=== PATIENT | female | born 1970 | race Caucasian/White ===

== ENCOUNTER 2024-04-07 10:58 | Inpatient (IN) | payer OTHER, MEDICAID, SELFPAY ==
[2024-04-07] VITALS (25 sets, daily range): BP systolic 134–199; BP diastolic 58–94; PULSE 87–116; RESP 16–27; TEMP 36.1–38.5; O2SAT 95–100; BMI 31.1
--- NOTE | 2024-04-07 | ECHO_ITS ---
Patient Info Name: Larissa Duckworth Age: 53 years : 1970 Gender: Female Ht: 64 in Wt: 178 lbs BSA: 1.94 m2 HR: 107 bpm BP: 173 / 71 mmHg Heart Rhythm: Sinus Rhythm Technical Quality: Good Exam Date: 04/07/2024 4:00 PM Exam Location: Echo Lab Patient Status: Inpatient Admit Date: 04/07/2024 Staff Ordering Physician: Linda Schultz APRN Tea Leaf Reader: Tessa Gil RDCS Attending Provider: Angelo Moreno MD Referring Physician: Antoine JONES; Exam Type: CA echo doppler color flow Study Info Indications - elevated troponin R06.02 - Shortness of breath Complete two-dimensional, color flow and Doppler transthoracic echocardiogram is performed. Summary 1. Complete two-dimensional, color flow and Doppler transthoracic echocardiogram is performed. 2. Unremarkable 2D/Doppler echocardiogram. Left Ventricle Left ventricular chamber dimension is normal. Left ventricular systolic function is normal, estimated at 60-65%. The left ventricular diastolic function is normal. Right Ventricle Right ventricular chamber dimension is normal. Left Atria Left atrial chamber dimension is normal. Right Atria Right atrial chamber dimension is normal. Aortic Valve The aortic valve is normal. Pulmonic Valve The pulmonic valve is normal. Mitral Valve The mitral valve has normal leaflets. Tricuspid Valve The tricuspid valve leaflets are normal. Pericardium/Pleural The pericardium appears normal. Aorta The aortic root size at the sinus of Valsalva is normal. Left Ventricular Outflow Tract Name Value Normal LVOT 2D LVOT Diameter 2.0 cm LVOT Doppler LVOT Peak Gradient 7 mmHg LVOT Mean Gradient 3 mmHg LVOT VTI 18 cm LVOT VTI/AV VTI Ratio 0.7 LVOT Stroke Volume 60 ml LVOT CO 5.8 l/min LVOT CI 3.0 l/min/m2 Pulmonic Valve Name Value Normal RVOT Doppler RVOT Peak Gradient 5 mmHg PV Doppler PV Peak Gradient 7 mmHg Mitral Valve Name Value Normal MV Doppler MV Decel [place] 458 cm/s2 MV PHT 44 ms MV Area (PHT) 5.0 cm2 4.0-5.0 MV Diastolic Function MV E Peak Velocity 69 cm/s MV A Peak Velocity 82 cm/s MV E/A 0.9 MV Decel Time 152 ms MV Annular TDI MV E/e' (Septal) 14.1 <=8.0 MV E/e' (Lateral) 15.8 <=8.0 MV E/e' (Average) 15.0 Aorta Name Value Normal Ascending Aorta Ao Root Diameter (MM) 2.8 cm Ao Root Diam Index (MM) 1.4 cm/m2 Aortic Valve Name Value Normal AV Doppler AV Peak Velocity 187 cm/s AV Peak Gradient 14 mmHg AV Mean Gradient 7 mmHg AV VTI 24 cm AV Area (Cont Eq VTI) 2.4 cm2 >=3.0 AV Area (Cont Eq Jude) 2.2 cm2 AV Regurgitation 2D LVOT Area 3.3 cm2 Ventricles Name Value Normal LV Dimensions 2D/MM IVS Diastolic Thickness (2D) 1.0 cm 0.6-1.0 LVID Diastole (2D) 5.6 cm 3.8-5.2 LVIW Diastolic Thickness (2D) 1.0 cm 0.6-0.9 LVID Systole (2D) 3.9 cm 2.2-3.5 LVOT Diameter 2.0 cm LV Mass (2D Cubed) 225.93 g 67.00-162.00 LV Mass Index (2D Cubed) 117 g/m2 43-95 Relative Wall Thickness (2D) 0.36 LV Fractional Shortening/Ejection Fraction 2D/MM LV Fractional Shortening (2D) 30 % 27-45 LV EF (2D Teicholz) 57 % 54-74 LV Diastolic Volume (4C MOD) 115 ml LV EF (4C MOD) 59 % LV Diastolic Volume (2C MOD) 122 ml LV EF (2C MOD) 59 % LV Diastolic Volume (BP MOD) 118 ml 46-106 LV Diastolic Volume Index (BP MOD) 61 ml/m2 29-61 LV Systolic Volume (BP MOD) 49 ml 14-42 LV Systolic Volume Index (BP MOD) 25 ml/m2 8-24 LV EF (BP MOD) 59 % 54-74 LV Diastolic Length (4C) 8.7 cm LV Systolic Length (4C) 7.5 cm LV Stroke Volume (4C MOD) 68 ml Atria Name Value Normal LA Dimensions LA Dimension (MM) 4.7 cm 2.7-3.8 LA Volume (4C A-L) 84 ml LA Volume (BP A-L) 89 ml RA Dimensions RA Area (4C) 15.9 cm2 <=18.0 Report Signatures
--- NOTE | ~2024-04-07 | CT_ITS ---
EXAMINATION: CT diagnostic chest wo con DATE: 04/08/2024 13:54 INDICATION: Shortness of breath TECHNIQUE: Computed tomography (CT) of the chest was performed without intravenous contrast. Automate d exposure control and iterative reconstruction technique were employed. Exam dose: 198.70 mGy-cm to deon exam DLP. COMPARISON: 04/08/2024 portable AP chest FINDINGS: There is bilateral minimal posterior basilar lower lobe and lingular basilar discoid atelec tasis and/or scarring. There is mild patchy right lower lobe infrahilar infiltrate. The lungs otherwise appear clear of infi ltrate or consolidation. There are shotty nonenlarged mediastinal lymph nodes. No thoracic aortic aneurysm. Normal heart size. Trace pericardial fluid. No hilar or mediastinal mass lesion or lymphadenopathy is detected. No pleural effusion. Normal morphology of the adrenal glands. Status post cholecystectomy. No suspicious osteolytic or osteoblastic lesions. IMPRESSION: Mild patchy right lower lobe infrahilar infiltrate Mild discoid atelectasis and/or scarring at the lung bases Trace pericardial fluid Status post cholecystectomy Reviewed, dictated and finalized at [facility]. Reviewed, dictated and finalized at location A.
--- NOTE | ~2024-04-07 | XR_ITS ---
EXAMINATION: XR chest 1V portable DATE: 04/07/2024 12:24 INDICATION: Shortness of breath TECHNIQUE: frontal view of the chest was obtained. COMPARISON: None FINDINGS: Several leads project over the chest. Mild retrocardiac airspace opacity left lower lung zone. No pul monary edema, pleural effusion or pneumothorax. The cardiomediastinal silhouette is normal. IMPRESSION: 1. Mild opacities projecting over the left lower lung zone which could represent atelectasis or pneum onia. Reviewed, dictated and finalized at location [facility]. IMPRESSION: 1. Mild opacities projecting over the left lower lung zone which could represen t atelectasis or pneumonia.
--- NOTE | ~2024-04-07 | XR_ITS ---
EXAMINATION: XR chest 1V portable DATE: 04/08/2024 09:47 INDICATION: Shortness of breath. TECHNIQUE: A single frontal view of the chest was obtained. COMPARISON: Chest single view 04/07/2024 FINDINGS: There is no pneumonia, pleural effusion, or pneumothorax. The heart size is normal. IMPRESSION: 1. No acute cardiopulmonary disease. Reviewed, dictated and finalized at location [facility].
--- NOTE | 2024-04-07 11:36 | ECG_ITS ---
Test Date: 2024-04-07 11:56:31 Measurements Intervals [place] Rate: 87 P: 42 NV: 174 QRS: 26 QRSD: 93 T: 91 QT: 367 QTc: 442 Interpretive Statements SINUS RHYTHM POSSIBLE LEFT ATRIAL ENLARGEMENT CANNOT R/O SEPTAL INFARCT, AGE INDETERMINATE BORDERLINE ST-T WAVE ABNORMALITY- HIGH LATERAL LEADS BASELINE ARTIFACT- I, II, III, AVR, AVL, AVF, V1-V6 BORDERLINE ECG No previous ECG available for comparison Electronically Signed On 04-07-2024 18:40:49 CDT by Ranjit Rivera D.O.
[2024-04-07 11:46] LABS: Basophils Absolute Auto 0.1 K/mm3 (0.0-0.1); Basophils Percent Auto 0.4 % (0.2-1.2); Eosinophils Absolute Auto 0.1 K/mm3 (0-0.3); Hematocrit 37.2 % (37.0-47.0); Hemoglobin 11.6 g/dL (12.0-15.0); Immature Granulocyte Absolute 0.04 K/mm3 (0.00-0.031); Immature Granulocyte Percent A 0.3 % (0-0.5); Lymphocytes Absolute Auto 0.74 K/mm3 (0.9-3.2); Lymphocytes Percent Auto 6.3 % (18.3-44.2); Mean Corpuscular HGB Conc 31.2 g/dl (32-36); Mean Corpuscular Hemoglobin 29.6 pg (26-34); Mean Corpuscular Volume 94.9 fl (80-100); Mean Platelet Volume 10.4 fl (7.4-10.4); Monocytes Absolute Auto 0.5 K/mm3 (0.1-0.6); Monocytes Percent Auto 4.3 % (2.6-8.5); Neutrophils Absolute Auto 10.3 K/mm3 (1.3-6.7); Neutrophils Percent Auto 87.7 % (45.5-73.1); Platelet Count Result 191 k/mm3 (150-375); Red Blood Count 3.92 M/mm3 (4.2-5.4); Red Cell Distribution Width 13.8 % (11.5-14.5); White Blood Count 11.8 K/mm3 (4.5-10.0)
[2024-04-07 11:57] LABS: Alanine Aminotransferase 128 U/L (6-35); Alkaline Phosphatase 138 U/L (38-126); Anion Gap 10 mmol/L (4-12); Aspartate Amino Transferase 70 U/L (14-36); Bilirubin,Total 0.7 mg/dL (0.2-1.3); Blood Urea Nitrogen 37 mg/dL (7-17); Calcium 9.2 mg/dL (8.4-10.2); Carbon Dioxide 19 mmol/L (22-30); Chloride 111 mmol/L (98-107); Estimated CRCL calculation 38 ml/min; Estimated Glomerular Filt Rate 34; Glucose 141 mg/dL (65-110); Potassium 4.6 mmol/L (3.4-5.0); Sodium 140 mmol/L (137-145)
[2024-04-07] MEDS: ALBUTEROL SULFATE NEB 2.5 MG/3 ML INH 10 MG INHALATION (12:02)
[2024-04-07] MEDS: IPRATROPIUM BR 0.02% INH SOLN 0.5 MG/2.5 ML VIAL 1 MG INHALATION (12:02)
[2024-04-07 13:21] LABS: NT Pro B Type Natriuretic Pept 10400 pg/mL (19.9-100)
[2024-04-07 13:24] LABS: Troponin I 0.056 ng/mL (0.000-0.034)
--- NOTE | 2024-04-07 13:30 | ED_ITS ---
HPI - SOB/Dyspnea General Chief Complaint: Shortness of Breath/Dyspnea Stated Complaint: SOB Time Seen by Provider: 04/07/24 11:17 History of Present Illness HPI Narrative: This is a 53-year-old female with a past medical history significant for congestive heart failure and hypertension. She is currently on-call directed medical therapy according to her home medications. She presents today in respiratory distress. She states that the shortness of breath started last night associated with the chest tightness sensation and a cough. She is having cold symptoms since and was recently diagnosed with bronchitis less than 1 month ago. She was treated with Z-Andre and steroids which did not fully resolve her symptoms. She states she was diagnosed with CHF in the remote past but had a lapse of her medications for several months prior to being restarted on last month after her insurance was restarted. She has been taking her medications without any changes or dose adjustments, no missed medications according to herself. She states she had a fever yesterday of 101.3. Endorses a productive cough of clear phlegm. Pain presents in severe respiratory distress, 2 word dyspnea, diaphoretic, hypertensive, tachycardic. She was made a medical resuscitation and immediately placed on BiPAP with respiratory therapy assist. [place]. Related Data Allergies Allergy/AdvReac Type Severity Reaction Status Date / Time aspirin Allergy Hives Verified 04/07/24 11:19 Review of Systems Review of Systems: As reviewed above in HPI Exam Narrative: GENERAL: Respiratory distress, diaphoretic, tachypneic, shallow respirations, tripod positioning HEAD: Normocephalic, atraumatic, diaphoresis on the forehead EYES: [PERRLA and EOMI.] ENT: Nares clear, no rhinorrhea or epistaxis. Mucous membranes moist. NECK: Supple. CHEST: Severely diminished air entry bilaterally, no appreciable wheezing, some crackles in the bases, accessory muscles of respiration used HEART: [Regular rate and rhythm]. No murmur heard. [Normal peripheral pulses.] ABDOMEN: [Soft, nondistended], [nontender], [No rigidity or guarding] EXTREMITIES: Normal range of motion. 1+ edema SKIN: Diaphoretic NEURO: [No focal deficits]. Alert and oriented [x3.] Course Vital Signs Vital signs: Vital Signs Temperature 36.1 C L 04/07/24 11:20 Pulse Rate 93 04/07/24 11:20 Respiratory Rate 20 04/07/24 11:20 Blood Pressure 199/94 H 04/07/24 11:20 Pulse Oximetry 97 04/07/24 11:20 Oxygen Delivery Nasal Cannula 04/07/24 11:20 Oxygen Flow Rate 2 04/07/24 11:20 Temperature 36.1 C L 04/07/24 11:20 Pulse Rate 107 H 04/07/24 13:30 Respiratory Rate 24 H 04/07/24 13:30 Blood Pressure 173/71 H 04/07/24 13:30 Pulse Oximetry 100 04/07/24 13:30 Oxygen Delivery BiPAP 04/07/24 12:04 Oxygen Flow Rate 2 04/07/24 11:20 MDM - SOB/Dyspnea MDM Narrative Medical decision making narrative: 53-year-old female with history of congestive heart failure on current goal- directed medical therapy presenting as a medical resuscitation secondary to respiratory distress. Patient is having 2 or dyspnea, diaphoretic, severely hy pertensive and tachycardic. Differential diagnosis at this time includes decompensated heart failure, ACS, pneumonia, reactive airway process such as a COPD or asthma although she is a nonsmoker does not have any history of this. Less likely pathology does include PE although she has low Wells criteria for this. Respiratory therapy was called to bedside to place patient on BiPAP with continuous nebulized treatments with albuterol Atrovent through in line nebulization. A bedside ultrasound was conducted by myself which revealed a significantly reduced ejection fraction of approximately 20-30% with no pericardial effusions or hypokinesis of any particular region of the chambers. B-lines were appreciated bilaterally but lung sliding was also seen without any evidence of pneumothorax. Patient had significant symptomatic improvement with the BiPAP and was tolerating this well. She was given 40 mg of IV Lasix for concerns of decompensated heart failure based on her ultrasound findings. Blood pressure and vital signs significantly improved. Repeat evaluation showed blood pressure of 173/71, heart rate 104, 100% on BiPAP. No emergent need for cardioactive medications to lower blood pressure further at this time given her significant improvement in respiratory distress. She is able to converse through the BiPAP easily, no longer feeling dyspneic, no longer diaphoretic, resting comfortably on the BiPAP. Workup revealed a slight leukocytosis of 11.8, anemia of 11.6 with unknown chronicity. Chemistry panel showed an elevated BUN and creatinine which could be intravascular volume depletion or component of CKD versus DAVEY. Glucose 141 and stable. Electrolytes largely within normal limits. ALT AST and alk-phos slightly elevated which could raise suspicion for potential congestive hepatopathy in the background of her CHF history but likely secondary not acutely concerning. Troponin mildly elevated 0.056, BNP significantly elevated at 10,400 thousand four hundred. EKG was nonischemic, repeat EKG and troponins will be trended. Chest x-ray shows airspace opacities in the left lower zone which could be atelectasis versus pneumonia. Given her history of fever and recent bronchitis we favor pneumonia in this scenario and treated her with IV antibiotics including Rocephin and doxycycline. Patient at this time requires admission to the hospital to the intermediate care unit given her initial respiratory distress now significantly improved on BiPAP therapy. Patient will be maintained on BiPAP and later will attempt to be transitioned to nasal cannula as tolerated. Discussions had with the hospitalist team regarding admission. Patient was agreeable to the plan of care at this time. Medical Records Attestation: I reviewed the patient's medical records. Lab Data Attestation: I reviewed the patient's lab results. 04/07/24 11:40 04/07/24 11:40 Labs: Lab Results 04/07/24 04/07/24 Range/Units 11:39 11:40 WBC 11.8 H (4.5-10.0) K/mm3 RBC 3.92 L (4.2-5.4) M/mm3 Hgb 11.6 L (12.0-15.0) g/dL Hct 37.2 (37.0-47.0) % MCV 94.9 (80-100) fl MCH 29.6 (26-34) pg MCHC 31.2 L (32-36) g/dl RDW 13.8 (11.5-14.5) % Plt Count 191 (150-375) k/mm3 MPV 10.4 (7.4-10.4) fl Immature Gran % (Auto) 0.3 (0-0.5) % Neut % (Auto) 87.7 H (45.5-73.1) % Lymph % (Auto) 6.3 L (18.3-44.2) % [place] % (Auto) 4.3 (2.6-8.5) % Eos % (Auto) 1.0 (0-4.4) % Baso % (Auto) 0.4 (0.2-1.2) % Lymph # (Auto) 0.74 L (0.9-3.2) K/mm3 [place] # (Auto) 0.5 (0.1-0.6) K/mm3 Eos # (Auto) 0.1 (0-0.3) K/mm3 Baso # (Auto) 0.1 (0.0-0.1) K/mm3 Abs Immat Gran (auto) 0.04 H (0.00-0.031) K/mm3 Absolute Neuts (auto) 10.3 H (1.3-6.7) K/mm3 Absolute Nucleated RBC 0.000 (0.0-0.012) K/mm3 Nucleated RBC % 0.0 (0.0-0.2) % Sodium 140 (137-145) mmol/L Potassium 4.6 (3.4-5.0) mmol/L Chloride 111 H (98-107) mmol/L Carbon Dioxide 19 L (22-30) mmol/L Anion Gap 10 (4-12) mmol/L BUN 37 H (7-17) mg/dL Creatinine 1.60 H (0.7-1.0) mg/dL Estim Creat Clear Calc 38 ml/min Estimated GFR 34 L (59 - ) Glucose 141 H (65-110) mg/dL Calcium 9.2 (8.4-10.2) mg/dL Total Bilirubin 0.7 (0.2-1.3) mg/dL AST 70 H (14-36) U/L ALT 128 H (6-35) U/L Alkaline Phosphatase 138 H (38-126) U/L Troponin I 0.056 H* (0.000-0.034) ng/mL NT-Pro-B Natriuret Pep 16912 H (19.9-100) pg/mL Total Protein 7.0 (6.3-8.2) g/dL Albumin 4.0 (3.5-5.1) g/dL Imaging Data Attestation: I personally reviewed and interpreted this imaging study as follows: Radiologist's impression: Impressions Chest X-Ray 04/07/24 12:24 IMPRESSION: 1. Mild opacities projecting over the left lower lung zone which could represent atelectasis or pneumonia. Critical Care Time Critical Care Time Critical Care Time: Yes Total Critical Care Time: 60 Discharge Plan Discharge Clinical Impression: Acute hypoxic respiratory failure, Community acquired pneumonia, Acute dec ompensated heart failure Patient Disposition: Still a Patient Condition: Guarded Prognosis Follow-up/Referrals: Patric Kinsey MD [Primary Care Provider] - Time of Disposition: 14:30
--- NOTE | 2024-04-07 13:35 | PC.NURSE ---
Spoke with EDP regarding blood cultures. Per EDP no blood cultures needed at this time.
[2024-04-07] MEDS: FUROSEMIDE INJ 40 MG/4 ML VIAL IV PUSH (13:40)
--- NOTE | 2024-04-07 14:35 | PM.IMHP ---
H&P: HPI History of Present Illness Date/Time: 04/07/24 14:35 Chief Complaint: Shortness of Breath Narrative: 53 y/o F presents here with shortness of breath with PMH of CHF, CKD stage 4, DM, and HTN. The patient presents here from home for further evaluation of shortness of breath. Patient reports that she initially started having symptoms on (04/06) which consisted of productive cough yielding clear sputum, fever with max T of 101.3? at home, shortness of breath, rhinorrhea, chills and body aches. Patient reports recent history of bronchitis, approximately 1 month ago, which was treated with azithromycin course and steroids. She reports that she completed both courses without full resolution of her symptoms - lingering fatigue. Patient also has history of congestive heart failure, has previously been on Lasix once daily (unknown mg) but has been off of these meds after an admission to a hospital in [place] in May/Apr (moved here in the last 6 months) due to the diuretic causing kidney problems . Patient also off her home medications for 2 months due to lack of insurance, reinstated 1 month ago and was able to contact her providers in [place] for a one month refill. Patient has made an appt with a local PCP (Addison DENNISON) but appt is not until Apr 18. Per ED provider, the patient arrived in severe respiratory distress. Patient unable to speak in full sentences due to shortness of breath, diaphoretic, hypertensive (199/94), and tachycardic (87-116). Patient initially arrived on 2 L nasal cannula, no baseline O2 requirement at home. Later in the ED course the patient was started on BiPAP due to the severity of her respiratory distress. Patient overall improved post BiPAP per ED provider assessment. Patient also reporting increased bilateral lower extremity edema over the last 2-5 days without tenderness or erthema. 5.9 in jul Initial VS at presentation: 97? F, HR 93, RR 20, 1-1 rhythm flu, wound a nodes 97% on 2L NC. ED workup showed: WBC 11.8, hemoglobin 11.6, creatinine 1.6 and GFR 34, AST 70, ALT 128, BNP 61623, and initial troponin 0.056. CXR showed mild opacities projecting over the left lower lung zone which could represent atelectasis versus pneumonia. Review of Systems Review of Systems: All systems reviewed & are unremarkable except as noted in HPI and below [facility] Past Medical History Medical History (Updated 04/07/24 @ 17:38 by Linda Schultz APRN) CHF (congestive heart failure) CKD (chronic kidney disease), stage IV Diabetes HTN (hypertension) Family History Family History (Updated 04/07/24 @ 15:46 by Melisa Boston RN) Father Leukemia Hypertension Chronic lymphocytic leukemia Mother Hypertension Diabetes mellitus Sibling Hypertension Grandparent Breast cancer Social History Social History Smoking status: Former smoker Tobacco type: cigarettes Additional smoking assessment comments: quit 2021, smoked 1 pack per week x 5 years Alcohol intake: never Substance use: current Substance use type: marijuana Other substance usage details: gummies Do You Feel Safe in your Home?: Yes Lack of Transportation: No Lack of Food: Never True Current Housing: I Have Housing Concerned About Future Housing: No Difficulty Paying Gas/Electric Bills: No Difficulty Paying for Meds: No Currently Unemployed: No Education: Associate Degree Difficulty w/ Childcare or Family Care: No Spiritual care concerns: No Meds Home Medications and Allergies Home Medications Medication Instructions Recorded Confirmed Type albuterol sulfate 90 mcg/actuation 90 inh inhalation Q4-6H PRN 04/07/24 04/07/24 History aerosol inhaler Shortness Of Breath Or Wheezing atorvastatin 40 mg tablet 40 mg PO DAILY 04/07/24 04/07/24 History clonidine HCl 0.1 mg tablet 0.3 mg PO HS 04/07/24 04/07/24 History empagliflozin 25 mg tablet 25 mg PO DAILY 04/07/24 04/07/24 History (Jardiance) gabapentin 100 mg capsule 100 mg PO HS 04/07/24 04/07/24 History insulin degludec 100 unit/mL (3 18 unit subcut DAILY 04/07/24 04/07/24 History mL) subcutaneous pen (Tresiba FlexTouch U-100 insulin) lisinopril 20 mg tablet 20 mg PO DAILY 04/07/24 04/07/24 History metoprolol succinate 100 mg 100 mg PO DAILY 04/07/24 04/07/24 History tablet,extended release 24 hr Allergies Allergy/AdvReac Type Severity Reaction Status Date / Time aspirin Allergy Hives Verified 04/07/24 11:19 Vital Signs Vital Signs - 24 hr 04/07/24 11:20 04/07/24 11:30 04/07/24 12:04 Temperature 97.0 F L Pulse Rate 93 98 92 Respiratory Rate 20 24 H 24 H Blood Pressure 199/94 H 167/90 H Pulse Oximetry 97 98 Oxygen Delivery Nasal Cannula Oxygen Flow Rate 2 04/07/24 12:04 04/07/24 12:31 04/07/24 12:46 Temperature Pulse Rate 87 110 H 116 H Respiratory Rate 26 H 27 H 22 H Blood Pressure 181/94 H 176/94 H Pulse Oximetry 100 100 100 Oxygen Delivery BiPAP Oxygen Flow Rate 04/07/24 13:16 04/07/24 13:30 Temperature Pulse Rate 105 H 107 H Respiratory Rate 24 H 24 H Blood Pressure 175/65 H 173/71 H Pulse Oximetry 100 100 Oxygen Delivery Oxygen Flow Rate Exam Const: General: comfortable and no acute distress Other: , female, nontoxic appearance HENMT: Face/Nose/Sinus: Normal nares present Mouth: Yes moist mucous membranes Other: NC in place Eyes: General: appearance normal, both eyes and all related structures Sclera: sclerae normal Pupils: Equal, round and reactive pupils present EOM: EOMs intact bilaterally Resp: Effort & Inspection: normal respiratory effort Auscultation: clear to auscultation bilaterally Other: No wheezing or crackles on exam. Cardio: Rate: regular rate Rhythm: regular rhythm Other: S1-S2 present without murmur, rub, ectopy GI: Other: Abdomen soft, nondistended, nontender Skin: General skin exam: normal color and no rashes or lesions noted Wounds: no wounds Neuro: General: gait normal Speech: normal speech Motor exam (neuro): 5/5 motor strength present throughout Sensory Exam: normal sensation Other: A&O x4 Extrem: Other: Trace nonpitting edema to bilateral ankles, symmetric Psych: Mental Status: mental status grossly normal Affect: normal affect Other: Good insight and judgment, very pleasant H&P: Results Labs Labs: Short CBC 04/07/24 Range/Units 11:40 WBC 11.8 H (4.5-10.0) K/mm3 Hgb 11.6 L (12.0-15.0) g/dL Hct 37.2 (37.0-47.0) % Plt Count 191 (150-375) k/mm3 BMP 04/07/24 11:40 Sodium 140 Potassium 4.6 Chloride 111 H Carbon Dioxide 19 L BUN 37 H Creatinine 1.60 H Glucose 141 H Calcium 9.2 Cardiac Enzymes 04/07/24 Range/Units 11:39 Troponin I 0.056 H* (0.000-0.034) ng/mL Liver Function 04/07/24 Range/Units 11:40 Total Bilirubin 0.7 (0.2-1.3) mg/dL AST 70 H (14-36) U/L ALT 128 H (6-35) U/L Alkaline Phosphatase 138 H (38-126) U/L Albumin 4.0 (3.5-5.1) g/dL Assessment and Plan Assessment and plan (1) Sepsis: Qualifiers: Sepsis type: sepsis due to unspecified organism Sepsis acute organ dysfunction status: with acute organ dysfunction Severe sepsis acute organ dysfunction type: acute respiratory failure Acute respiratory failure type: with hypoxia Severe sepsis shock status: without septic shock Qualified Code(s): A41.9 - Sepsis, unspecified organism; R65.20 - Severe sepsis without septic shock; J96.01 - Acute respiratory failure with hypoxia Code(s): A41.9 - Sepsis, unspecified organism Status: Acute Assessment and Plan: - meets SIRS criteria: HR, RR. +hypoxia - lactic acid: 4.9 - lactic elevated, procalcitonin added - given concern for CHF exacerbation, will start with 500 mL bolus and 100 mL/hour x1 L. Monitor response. - suspected source: Pneumonia - started on ceftriaxone IVPB and doxycycline p.o. - blood cultures drawn on 04/07 - UA added - CXR showing possible left lower lobe pneumonia (2) Acute hypoxic respiratory failure: Code(s): J96.01 - Acute respiratory failure with hypoxia Status: Acute Assessment and Plan: - CXR: Mild opacities projecting over the left lower lung zone which could represent atelectasis or pneumonia. - initially requiring BiPAP, now weaned to 2L NC. Continue to wean as tolerated and maintain sat >92%. - suspect pneumonia with possible CHF component (3) Community acquired pneumonia: Qualifiers: Laterality: left Lung location: lower lobe of lung Qualified Code(s): J18.9 - Pneumonia, unspecified organism Code(s): J18.9 - Pneumonia, unspecified organism Status: Suspected Assessment and Plan: - CXR concerning for left lower lobe pneumonia - risk factors and complicating factors: Possible CHF exacerbation - started on CAP tx: Ceftriaxone IVPB and and doxycycline p.o. - Viral PCR pending - sputum culture - currently requiring supplemental O2, wean as tolerated and maintain sat greater than 92% (4) Acute decompensated heart failure: Code(s): I50.9 - Heart failure, unspecified Status: Suspected Assessment and Plan: - BNP 15908 - no echo on file, ordered - currently off diuretics, will start Lasix 40 IVP daily - daily weights - monitor I&Os - trend renal function (5) CKD (chronic kidney disease), stage IV: Code(s): N18.4 - Chronic kidney disease, stage 4 (severe) Status: Chronic Assessment and Plan: - creatinine 1.6 and GFR 34 - unknown baseline - hx of CKD stage 4 - trend renal function - trend electrolytes, correct as needed (6) Diabetes: Qualifiers: Diabetes mellitus type: type 2 Diabetes mellitus terminal superintendent insulin use: without terminal superintendent use Diabetes mellitus complication status: with kidney complications Diabetes mellitus complication detail: with chronic kidney disease Chronic kidney disease stage: stage 4 (severe) Qualified Code(s): E11.22 - Type 2 diabetes mellitus with diabetic chronic kidney disease; N18.4 - Chronic kidney disease, stage 4 (severe) Code(s): E11.9 - Type 2 diabetes mellitus without complications Status: Chronic Assessment and Plan: - hypoglycemia protocol - POC blood glucose ACHS - home medication: Continue Jardiance - correct regimen ordered - high dose TIDWM, based off BMI - A1C ordered (7) HTN (hypertension): Qualifiers: Hypertension type: primary hypertension Qualified Code(s): I10 - Essential (primary) hypertension Code(s): I10 - Essential (primary) hypertension Status: Chronic Assessment and Plan: - chronic, currently 158/64. Arrived hypertensive at 199/94. - continue home medications: clonidine 0.3 HS, lisinopril 20 daily, metoprolol XL 100 daily - monitor Plan Patient requesting refill of her medications at discharge, does not have appointment to establish with a PCP here until April 18. Patient also requesting referral to Nephrology and Cardiology to establish care here as well, previously saw these specialists in [place]. Diet: Diabetic GI Prophylaxis: Not currently indicated DVT Prophylaxis: SCDs Lines: Peripheral Code Status: Full code Quality VTE Prophylaxis VTE prophylaxis: mechanical ordered Hospitalist MIPS Advance Care Plan I have confirmed that the patient's Advanced Care Plan is present, code status is documented, or surrogate decision maker is listed in patient medical record.: Yes Medication Reconciliation I have utilized all available resources to obtain, update and review the patients current medications (includes all prescriptions, OTC, herbals, cannabis, and nutritional supplements).: Yes
[2024-04-07] MEDS: DOXYCYCLINE 100 MG/NS 100 ML 100 MG/100 ML BAG IVPB (15:10)
[2024-04-07 15:25] LABS: Influenza A QL RT-PCR Negative (Negative); Influenza B QL RT-PCR Negative (Negative); RSV RNA, RT-PCR Negative (Negative); SARS-CoV-2 RNA PCR Negative (Negative)
--- NOTE | 2024-04-07 15:51 | ADMGEN ---
Addendum entered by Melisa Boston RN 04/07/24 19:11: Pt arrived to the floor at 1535. Report received from PASTORA Diaz @ [id number] Original Note: This patient, Larissa Duckworth, was admitted to IMU Room 212-01. Patient/family oriented to hospital policies and general routines including ID bracelet, bed and alarms, visiting hours, pain management, procedures, bathroom and other care routines, personal items, smoking policy, room service/diet, and visiting hours. Information on how to activate the Rapid Response Team has been discussed. Patient/Family are encouraged to report perceived risks to care and to ask questions if they do not understand what they are told or what they should do.
[2024-04-07 17:03] LABS: Lactic Acid Reflex 4.9 mmol/L (0.7-2.0)
[2024-04-07 17:16] LABS: Troponin I 0.079 ng/mL (0.000-0.034)
[2024-04-07 17:52] LABS: Glucose Point of Care 249 mg/dl (65-105)
[2024-04-07] MEDS: SODIUM CHLORIDE 0.9% IV 500 ML 999 ML IV CONT (17:56)
[2024-04-07] MEDS: INSULIN ASPART (*BKC) 100 UNITS/ML SUB-Q (17:56)
[2024-04-07] MEDS: LACTATED RINGERS 1,000 ML 100 ML IV CONT (17:56)
[2024-04-07 18:57] LABS: Procalcitonin 0.2 ng/mL
[2024-04-07 19:40] LABS: Reflex Lactic Acid Yes or No Add Lactic
[2024-04-07 19:45] LABS: Add Urine Microscopic? NO; Appearance Urine Clear (Clear); Bilirubin Urine Negative (Negative); Blood Urine Negative (Negative); Color Urine Yellow (Yellow); Glucose Urine UA 2+ mg/dL (Negative); Ketones Urine Negative (Negative); Leukocyte Esterase Ur Negative LEU/UL (Negative); Nitrate Urine Negative (Negative); Protein Urine Negative (Negative); Urobilinogen Urine 0.2 mg/dL (<2.0)
[2024-04-07] MEDS: cloNIDine HCL 0.1 MG TABLET 0.3 MG PO (20:25)
[2024-04-07] MEDS: DOXYCYCLINE HYCLATE 100 MG TABLET PO (20:26)
[2024-04-07] MEDS: GABAPENTIN 100 MG CAPSULE PO (20:26)
[2024-04-07] MEDS: ACETAMINOPHEN 325 MG TABLET 650 MG PO (20:26)
[2024-04-07 20:32] LABS: Glucose Point of Care 149 mg/dl (65-105)
[2024-04-07] MEDS: IPRATROPIUM 0.5 MG/ALBUTEROL SULFATE 2.5 MG AMPUL.NEB 3 ML INHALATION (20:41)
[2024-04-07 21:13] LABS: Lactic Acid 2.8 mmol/L (0.7-2.0)
[2024-04-08] VITALS (22 sets, daily range): BP systolic 103–155; BP diastolic 61–78; PULSE 78–98; RESP 20–25; TEMP 36.8–37.1; O2SAT 90–100
[2024-04-08] MEDS: ALBUTEROL SULFATE (*SP) AEROSOL 1 PUFF INHALATION (04:08)
[2024-04-08 04:31] LABS: Basophils Absolute Auto 0.1 K/mm3 (0.0-0.1); Basophils Percent Auto 0.5 % (0.2-1.2); Eosinophils Absolute Auto 0.1 K/mm3 (0-0.3); Eosinophils Percent Auto 0.5 % (0-4.4); Hematocrit 37.1 % (37.0-47.0); Hemoglobin 11.6 g/dL (12.0-15.0); Immature Granulocyte Absolute 0.04 K/mm3 (0.00-0.031); Immature Granulocyte Percent A 0.4 % (0-0.5); Lymphocytes Absolute Auto 1.09 K/mm3 (0.9-3.2); Mean Corpuscular HGB Conc 31.3 g/dl (32-36); Mean Corpuscular Hemoglobin 29.5 pg (26-34); Mean Corpuscular Volume 94.4 fl (80-100); Mean Platelet Volume 10.3 fl (7.4-10.4); Monocytes Absolute Auto 0.6 K/mm3 (0.1-0.6); Monocytes Percent Auto 5.6 % (2.6-8.5); Platelet Count Result 202 k/mm3 (150-375); Red Blood Count 3.93 M/mm3 (4.2-5.4); Red Cell Distribution Width 14.4 % (11.5-14.5); White Blood Count 10.9 K/mm3 (4.5-10.0)
[2024-04-08 04:39] LABS: Hemoglobin A1C 8.3 % (<5.7)
[2024-04-08 04:56] LABS: Alanine Aminotransferase 95 U/L (6-35); Alkaline Phosphatase 119 U/L (38-126); Anion Gap 12 mmol/L (4-12); Aspartate Amino Transferase 36 U/L (14-36); Bilirubin,Total 0.8 mg/dL (0.2-1.3); Blood Urea Nitrogen 33 mg/dL (7-17); Calcium 9.3 mg/dL (8.4-10.2); Carbon Dioxide 21 mmol/L (22-30); Chloride 103 mmol/L (98-107); Estimated CRCL calculation 36 ml/min; Estimated Glomerular Filt Rate 32; Glucose 234 mg/dL (65-110); Sodium 136 mmol/L (137-145)
[2024-04-08 07:24] LABS: Glucose Point of Care 219 mg/dl (65-105)
[2024-04-08] MEDS: IPRATROPIUM 0.5 MG/ALBUTEROL SULFATE 2.5 MG AMPUL.NEB 3 ML INHALATION ×3 (07:47→19:51)
[2024-04-08 09:15] LABS: Lactic Acid Reflex 0.8 mmol/L (0.7-2.0)
[2024-04-08 09:41] LABS: Alveolar/Arterial O2 Gradient 98.2 mmHg; Base Excess ABG -4.2 mEq/l (+/-2.0); Fractional Inspired Oxygen 28 %; HCO3 ABG 19.6 mEq/l (22.0-26.0); Oxygen Content ABG 15.1 %vol (16.0-22.0); Oxyhemoglobin 91.7 % THb (90.0-100.0); PCO2 ABG 31.6 mmHg (35.0-45.0); PO2 ABG 64.2 mmHg (80.0-100.0); PO2 FiO2 Ratio Arterial Blood 2.29 %; Total Hemoglobin 11.7 g/dL (12.0-18.0)
[2024-04-08 09:42] LABS: Device NASAL CANNULA; Modified Allen's Test Pass; Site Drawn LEFT RADIAL
[2024-04-08] MEDS: lisinopriL 20 MG TABLET PO (09:42)
[2024-04-08] MEDS: ATORVASTATIN 40 MG TABLET PO (09:42)
[2024-04-08] MEDS: METOPROLOL SUCCINATE EXT REL 100 MG TABCR PO (09:43)
[2024-04-08] MEDS: DOXYCYCLINE HYCLATE 100 MG TABLET PO ×2 (09:44→21:47)
[2024-04-08] MEDS: EMPAGLIFLOZIN 25 MG TABLET PO (09:45)
[2024-04-08] MEDS: FUROSEMIDE INJ 40 MG/4 ML VIAL IV PUSH (09:51)
[2024-04-08 10:14] LABS: Glucose Point of Care 192 mg/dl (65-105)
[2024-04-08] MEDS: INSULIN GLARGINE (*BKC) 100 UNITS/ML 18 UNITS SUB-Q (10:14)
[2024-04-08] MEDS: guaiFENesin 600 MG/DEXTROMETHORPHAN 30 MG SR TAB 12 HR 1 TAB PO ×2 (10:21→20:31)
[2024-04-08 11:58] LABS: Glucose Point of Care 192 mg/dl (65-105)
--- NOTE | 2024-04-08 13:07 | P.PNIM_ITS ---
Progress Note: A&P Assessment and Plan (1) Sepsis: Qualifiers: Sepsis type: sepsis due to unspecified organism Sepsis acute organ dysfunction status: with acute organ dysfunction Severe sepsis acute organ dysfunction type: acute respiratory failure Acute respiratory failure type: with hypoxia Severe sepsis shock status: without septic shock Qualified Code(s): A41.9 - Sepsis, unspecified organism; R65.20 - Severe sepsis without septic shock; J96.01 - Acute respiratory failure with hypoxia Code(s): A41.9 - Sepsis, unspecified organism Status: Acute Assessment and Plan: - meets SIRS criteria: HR, RR. +hypoxia - lactic acidosis resolved, 0.8 today - lactic elevated, procalcitonin added gentle IVF and monitor - started on ceftriaxone IVPB and doxycycline p.o. monitor cultures CXR this mornign showed negative Pneumonia, Ct chest ordered CXR on admission showed left lower lung zone opacities F/u Ct chest (2) Acute hypoxic respiratory failure: Code(s): J96.01 - Acute respiratory failure with hypoxia Status: Acute Assessment and Plan: - CXR: Mild opacities projecting over the left lower lung zone which could represent atelectasis or pneumonia. - initially requiring BiPAP, now weaned to 2L NC. Continue to wean as tolerated and maintain sat >92%. - titrate oxygen and follow up CT chest (3) Community acquired pneumonia: Qualifiers: Laterality: left Lung location: lower lobe of lung Qualified Code(s): J18.9 - Pneumonia, unspecified organism Code(s): J18.9 - Pneumonia, unspecified organism Status: Suspected Assessment and Plan: continue above care (4) Acute decompensated heart failure: Code(s): I50.9 - Heart failure, unspecified Status: Suspected Assessment and Plan: await CT chest and titrate diuresis with clinical course (5) CKD (chronic kidney disease), stage IV: Code(s): N18.4 - Chronic kidney disease, stage 4 (severe) Status: Chronic Assessment and Plan: - creatinine 1.6 and GFR 34 - unknown baseline - hx of CKD stage 4 - trend renal function - trend electrolytes, correct as needed (6) Diabetes: Qualifiers: Diabetes mellitus type: type 2 Diabetes mellitus long term care pharmacist insulin use: without senior care use Diabetes mellitus complication status: with kidney complications Diabetes mellitus complication detail: with chronic kidney disease Chronic kidney disease stage: stage 4 (severe) Qualified Code(s): E11.22 - Type 2 diabetes mellitus with diabetic chronic kidney disease; N18.4 - Chronic kidney disease, stage 4 (severe) Code(s): E11.9 - Type 2 diabetes mellitus without complications Status: Chronic Assessment and Plan: - hypoglycemia protocol - POC blood glucose ACHS - home medication: Continue Jardiance - correct regimen ordered - high dose TIDWM, based off BMI - A1C ordered (7) HTN (hypertension): Qualifiers: Hypertension type: primary hypertension Qualified Code(s): I10 - Essential (primary) hypertension Code(s): I10 - Essential (primary) hypertension Status: Chronic Assessment and Plan: - chronic, currently 158/64. Arrived hypertensive at 199/94. - continue home medications: clonidine 0.3 HS, lisinopril 20 daily, metoprolol XL 100 daily - monitor Plan Diet: Diabetic DVT Prophylaxis: on sq Lovenox Lines: Peripheral Code Status: Full code Subjective Date/time seen: 04/08/24 13:07 Interval history: Comfortable at bedside, still on BiPAP at the time of this encounter Review of Systems Review of Systems: All systems reviewed & are unremarkable except as noted in HPI and below Exam Narrative: General: alert and comfortable, on BIPAP Eyes: EOMI, PERRLA ENNT External ears normal, Neck is supple, no masses, Respiratory systems: Clear to auscultation Cardiovascular S1, S2, normal rhythm, no murmur, rub, or gallop; no thrill or palpable murmurs on palpation. Gastrointestinal: soft, non-tender, and non-distended abdomen with no masses; BS present Skin: no rash, lesions, ulcerations, subcutaneous nodules or induration Musculoskeletal: no abnormality and no tenderness, normal ROM Neurologic: Alert and oriented x3, non focal Mental Status Exam: normal affect Objective Data Vital Signs Vital Signs: Vital Signs - 24 hr 04/07/24 13:16 04/07/24 13:30 04/07/24 15:43 Temperature Pulse Rate 105 H 107 H Respiratory Rate 24 H 24 H Blood Pressure 175/65 H 173/71 H Pulse Oximetry 100 100 96 Oxygen Delivery Nasal Cannula Oxygen Flow Rate 2 Fraction of Inspired Oxygen 04/07/24 15:43 04/07/24 13:46 04/07/24 14:00 Temperature 99.3 F Pulse Rate 103 H 105 H 101 H Respiratory Rate 20 24 H 21 H Blood Pressure 158/64 H 169/70 H 155/68 H Pulse Oximetry 97 100 100 Oxygen Delivery Oxygen Flow Rate Fraction of Inspired Oxygen 04/07/24 14:16 04/07/24 14:52 04/07/24 15:00 Temperature Pulse Rate 103 H 99 97 Respiratory Rate 22 H 19 24 H Blood Pressure 159/74 H 162/59 H 160/79 H Pulse Oximetry 100 100 100 Oxygen Delivery Oxygen Flow Rate Fraction of Inspired Oxygen 04/07/24 15:15 04/07/24 15:35 04/07/24 16:00 Temperature Pulse Rate 96 101 H Respiratory Rate 24 H Blood Pressure 161/69 H Pulse Oximetry 100 95 Oxygen Delivery Nasal Cannula Oxygen Flow Rate 2 Fraction of Inspired Oxygen 04/07/24 20:00 04/07/24 20:26 04/07/24 20:45 Temperature 101.3 F H 101.3 F H Pulse Rate 103 H 108 H Respiratory Rate 16 24 H Blood Pressure 159/73 H Pulse Oximetry 97 100 Oxygen Delivery BiPAP Oxygen Flow Rate Fraction of Inspired Oxygen 04/07/24 20:47 04/07/24 21:26 04/07/24 20:00 Temperature 97.4 F L Pulse Rate 108 H 102 H Respiratory Rate 24 H Blood Pressure Pulse Oximetry 100 Oxygen Delivery BiPAP Oxygen Flow Rate Fraction of Inspired Oxygen 04/07/24 22:00 04/07/24 20:00 04/07/24 23:57 Temperature 98.3 F Pulse Rate 94 89 Respiratory Rate 26 H Blood Pressure 134/58 L Pulse Oximetry 97 100 Oxygen Delivery Nasal Cannula Oxygen Flow Rate 2 Fraction of Inspired Oxygen 04/08/24 00:00 04/08/24 00:00 04/08/24 00:40 Temperature Pulse Rate 85 83 Respiratory Rate 25 H Blood Pressure Pulse Oximetry 100 96 Oxygen Delivery BiPAP BiPAP Oxygen Flow Rate Fraction of Inspired Oxygen 30 04/08/24 02:00 04/08/24 04:00 04/08/24 04:08 Temperature 98.8 F Pulse Rate 80 80 Respiratory Rate 23 H Blood Pressure 122/62 Pulse Oximetry 99 95 Oxygen Delivery Nasal Cannula Oxygen Flow Rate 2 Fraction of Inspired Oxygen 28 04/08/24 04:08 04/08/24 04:00 04/08/24 04:00 Temperature Pulse Rate 96 88 Respiratory Rate 23 H Blood Pressure Pulse Oximetry 93 Oxygen Delivery BiPAP Oxygen Flow Rate Fraction of Inspired Oxygen 30 04/08/24 06:00 04/08/24 07:48 04/08/24 07:50 Temperature Pulse Rate 90 87 87 Respiratory Rate 21 H 23 H Blood Pressure Pulse Oximetry 98 Oxygen Delivery BiPAP Oxygen Flow Rate Fraction of Inspired Oxygen 04/08/24 08:00 04/08/24 08:00 04/08/24 12:00 Temperature 98.3 F 98.3 F Pulse Rate 98 88 85 Respiratory Rate 20 20 20 Blood Pressure 155/69 H 144/72 H Pulse Oximetry 97 95 Oxygen Delivery Oxygen Flow Rate Fraction of Inspired Oxygen 04/08/24 08:00 04/08/24 12:00 Temperature Pulse Rate Respiratory Rate Blood Pressure Pulse Oximetry 98 97 Oxygen Delivery BiPAP Nasal Cannula Oxygen Flow Rate 2 Fraction of Inspired Oxygen 30 Intake/Output Intake/Output: Intake & Output 04/05/24 04/06/24 04/07/24 04/08/24 23:59 23:59 23:59 23:59 Intake Total 1430 400 Output Total 700 Balance 1430 -300 Meds/Results Medications: Active Medications Generic Name Dose Route Start Last Admin Trade Name Freq PRN Reason Stop Dose Admin Acetaminophen 650 mg 04/07/24 15:09 04/07/24 20:26 Acetaminophen 325 Mg Tablet PO 650 mg Q4H PRN Administration Mild Pain (1-3) or Fever Albuterol 1 puff 04/07/24 17:34 04/08/24 04:08 Albuterol Sulfate (*Sp) Aerosol 1 Puff INHALATION 1 puff Q4-6H PRN Administration Shortness Of Breath Or Wheezin Albuterol/Ipratropium 3 ml 04/08/24 04:05 04/08/24 07:47 Ipratropium 0.5 Mg/Albuterol Sulfate 2.5 Mg Ampul.Neb 3 Ml INHALATION 3 ml Q6HRT PAIGE Administration Atorvastatin Calcium 40 mg 04/08/24 09:00 04/08/24 09:42 Atorvastatin 40 Mg Tablet PO 40 mg DAILY PAIGE Administration Clonidine HCl 0.3 mg 04/07/24 21:00 04/07/24 20:25 Clonidine Hcl 0.1 Mg Tablet PO 0.3 mg HS PAIGE Administration Dextrose 12.5 gm 04/07/24 17:36 Dextrose 50% 25 Gm/50 Ml Syringe IV PUSH PRN PRN Hypoglycemia Protocol Doxycycline Hyclate 100 mg 04/07/24 22:00 04/08/24 09:44 Doxycycline Hyclate 100 Mg Tablet PO 100 mg Q12H PAIGE Administration Empagliflozin 25 mg 04/08/24 09:00 04/08/24 09:45 Empagliflozin 25 Mg Tablet PO 25 mg DAILY PAIGE Administration Furosemide 40 mg 04/08/24 09:00 04/08/24 09:51 Furosemide Inj 40 Mg/4 Ml Vial IV PUSH 40 mg DAILY PAIGE Administration Gabapentin 100 mg 04/07/24 21:00 04/07/24 20:26 Gabapentin 100 Mg Capsule PO 100 mg HS PAIGE Administration Glucagon 1 mg 04/07/24 17:36 Glucagon For Inj 1 Mg Vial IM PRN PRN Hypoglycemia Protocol Glucose 15 gm 04/07/24 17:36 Glucose Oral Gel 15 Gm Of Glucse In 37.5 Gm Tube PO PRN PRN Hypoglycemia Protocol Guaifenesin/Dextromethorphan 1 tab 04/08/24 10:10 04/08/24 10:21 Guaifenesin 600 Mg/Dextromethorphan 30 Mg Sr Tab 12 Hr PO 1 tab Q12HR PAIGE Administration Ceftriaxone Sodium 1 gm in 50 mls @ 100 mls/hr 04/08/24 14:00 Rocephin 1 Gm/Ns 50 Ml IVPB Q24H PAIGE Dextrose 1,000 mls @ 100 mls/hr 04/07/24 17:36 Dextrose 5% 1,000 Ml IVPB PRN PRN Hypoglycemia Protocol Insulin Aspart 4 - 8 units 04/07/24 17:54 04/08/24 11:30 Insulin Aspart (*Bkc) 100 Units/Ml SUB-Q Not Given TIDWM APIGE Protocol Insulin Glargine 18 units 04/08/24 09:00 04/08/24 10:14 Insulin Glargine (*Bkc) 100 Units/Ml SUB-Q 18 units DAILY PAIGE Administration Lisinopril 20 mg 04/08/24 09:00 04/08/24 09:42 Lisinopril 20 Mg Tablet PO 20 mg DAILY PAIGE Administration Metoprolol Succinate 100 mg 04/08/24 09:00 04/08/24 09:43 Metoprolol Succinate Ext Rel 100 Mg Tabcr PO 100 mg DAILY PAIGE Administration Perflutren Lipid Microsphere 0 ml 04/07/24 15:06 Perflutren Lipid Microspheres 1.5 Ml Vial Diluted To 10 Ml Total Volume IV PUSH 04/10/24 15:06 ONCE PRN adequate visualization Protocol Radiology Results: ITS Impressions Chest X-Ray 04/08/24 09:48 IMPRESSION: 1. No acute cardiopulmonary disease. Labs Labs: Laboratory Results - last 24 hr 04/07/24 04/07/24 04/07/24 11:39 14:37 14:43 WBC RBC Hgb Hct MCV MCH MCHC RDW Plt Count MPV Immature Gran % (Auto) Neut % (Auto) Lymph % (Auto) [place] % (Auto) Eos % (Auto) Baso % (Auto) Lymph # (Auto) [place] # (Auto) Eos # (Auto) Baso # (Auto) Abs Immat Gran (auto) Absolute Neuts (auto) Absolute Nucleated RBC Nucleated RBC % Puncture Site ABG pH ABG pCO2 ABG pO2 ABG PO2/FiO2 Ratio ABG HCO3 ABG O2 Saturation ABG O2 Content ABG Base Excess A-a Gradient Oxyhemoglobin Total Hemoglobin O2 Delivery Device O2 Liters/Min FiO2 Sodium Potassium Chloride Carbon Dioxide Anion Gap BUN Creatinine Estim Creat Clear Calc Estimated GFR Glucose POC Capillary Glucose Hemoglobin A1c Lactic Acid Calcium Total Bilirubin AST ALT Alkaline Phosphatase Troponin I 0.056 H* 0.070 H* D NT-Pro-B Natriuret Pep 09788 H Total Protein Albumin Procalcitonin Urine Color Urine Appearance Urine pH Ur Specific [place] Urine Protein Urine Glucose (UA) Urine Ketones Ur Blood (Man) Urine Nitrate Urine Bilirubin Urine Urobilinogen Leukocyte Esterase Rfl Influenza A (RT-PCR) Negative Influenza B (RT-PCR) Negative RSV (RT-PCR) Negative SARS-CoV-2 RNA (RT-PCR) Negative 04/07/24 04/07/24 04/07/24 16:30 16:34 17:48 WBC RBC Hgb Hct MCV MCH MCHC RDW Plt Count MPV Immature Gran % (Auto) Neut % (Auto) Lymph % (Auto) [place] % (Auto) Eos % (Auto) Baso % (Auto) Lymph # (Auto) [place] # (Auto) Eos # (Auto) Baso # (Auto) Abs Immat Gran (auto) Absolute Neuts (auto) Absolute Nucleated RBC Nucleated RBC % Puncture Site ABG pH ABG pCO2 ABG pO2 ABG PO2/FiO2 Ratio ABG HCO3 ABG O2 Saturation ABG O2 Content ABG Base Excess A-a Gradient Oxyhemoglobin Total Hemoglobin O2 Delivery Device O2 Liters/Min FiO2 Sodium Potassium Chloride Carbon Dioxide Anion Gap BUN Creatinine Estim Creat Clear Calc Estimated GFR Glucose POC Capillary Glucose 249 H Hemoglobin A1c Lactic Acid 4.9 H* Calcium Total Bilirubin AST ALT Alkaline Phosphatase Troponin I 0.079 H* NT-Pro-B Natriuret Pep Total Protein Albumin Procalcitonin 0.2 Urine Color Urine Appearance Urine pH Ur Specific [place] Urine Protein Urine Glucose (UA) Urine Ketones Ur Blood (Man) Urine Nitrate Urine Bilirubin Urine Urobilinogen Leukocyte Esterase Rfl Influenza A (RT-PCR) Influenza B (RT-PCR) RSV (RT-PCR) SARS-CoV-2 RNA (RT-PCR) 04/07/24 04/07/24 04/07/24 19:15 20:27 20:46 WBC RBC Hgb Hct MCV MCH MCHC RDW Plt Count MPV Immature Gran % (Auto) Neut % (Auto) Lymph % (Auto) [place] % (Auto) Eos % (Auto) Baso % (Auto) Lymph # (Auto) [place] # (Auto) Eos # (Auto) Baso # (Auto) Abs Immat Gran (auto) Absolute Neuts (auto) Absolute Nucleated RBC Nucleated RBC % Puncture Site ABG pH ABG pCO2 ABG pO2 ABG PO2/FiO2 Ratio ABG HCO3 ABG O2 Saturation ABG O2 Content ABG Base Excess A-a Gradient Oxyhemoglobin Total Hemoglobin O2 Delivery Device O2 Liters/Min FiO2 Sodium Potassium Chloride Carbon Dioxide Anion Gap BUN Creatinine Estim Creat Clear Calc Estimated GFR Glucose POC Capillary Glucose 149 H Hemoglobin A1c Lactic Acid 2.8 H Calcium Total Bilirubin AST ALT Alkaline Phosphatase Troponin I NT-Pro-B Natriuret Pep Total Protein Albumin Procalcitonin Urine Color Yellow Urine Appearance Clear Urine pH 5.0 Ur Specific [place] 1.010 Urine Protein Negative Urine Glucose (UA) 2+ H Urine Ketones Negative Ur Blood (Man) Negative Urine Nitrate Negative Urine Bilirubin Negative Urine Urobilinogen 0.2 Leukocyte Esterase Rfl Negative Influenza A (RT-PCR) Influenza B (RT-PCR) RSV (RT-PCR) SARS-CoV-2 RNA (RT-PCR) 04/08/24 04/08/24 04/08/24 04:16 07:22 08:45 WBC 10.9 H RBC 3.93 L Hgb 11.6 L Hct 37.1 MCV 94.4 MCH 29.5 MCHC 31.3 L RDW 14.4 Plt Count 202 MPV 10.3 Immature Gran % (Auto) 0.4 Neut % (Auto) 83.0 H Lymph % (Auto) 10.0 L [place] % (Auto) 5.6 Eos % (Auto) 0.5 Baso % (Auto) 0.5 Lymph # (Auto) 1.09 [place] # (Auto) 0.6 Eos # (Auto) 0.1 Baso # (Auto) 0.1 Abs Immat Gran (auto) 0.04 H Absolute Neuts (auto) 9.0 H Absolute Nucleated RBC 0.000 Nucleated RBC % 0.0 Puncture Site ABG pH ABG pCO2 ABG pO2 ABG PO2/FiO2 Ratio ABG HCO3 ABG O2 Saturation ABG O2 Content ABG Base Excess A-a Gradient Oxyhemoglobin Total Hemoglobin O2 Delivery Device O2 Liters/Min FiO2 Sodium 136 L Potassium 4.0 Chloride 103 Carbon Dioxide 21 L Anion Gap 12 BUN 33 H Creatinine 1.70 H Estim Creat Clear Calc 36 Estimated GFR 32 L Glucose 234 H POC Capillary Glucose 219 H Hemoglobin A1c 8.3 H Lactic Acid 0.8 Calcium 9.3 Total Bilirubin 0.8 AST 36 ALT 95 H Alkaline Phosphatase 119 Troponin I NT-Pro-B Natriuret Pep Total Protein 7.0 Albumin 4.0 Procalcitonin Urine Color Urine Appearance Urine pH Ur Specific [place] Urine Protein Urine Glucose (UA) Urine Ketones Ur Blood (Man) Urine Nitrate Urine Bilirubin Urine Urobilinogen Leukocyte Esterase Rfl Influenza A (RT-PCR) Influenza B (RT-PCR) RSV (RT-PCR) SARS-CoV-2 RNA (RT-PCR) 04/08/24 04/08/24 04/08/24 09:31 10:07 11:23 WBC RBC Hgb Hct MCV MCH MCHC RDW Plt Count MPV Immature Gran % (Auto) Neut % (Auto) Lymph % (Auto) [place] % (Auto) Eos % (Auto) Baso % (Auto) Lymph # (Auto) [place] # (Auto) Eos # (Auto) Baso # (Auto) Abs Immat Gran (auto) Absolute Neuts (auto) Absolute Nucleated RBC Nucleated RBC % Puncture Site Left radial ABG pH 7.410 ABG pCO2 31.6 L ABG pO2 64.2 L ABG PO2/FiO2 Ratio 2.29 ABG HCO3 19.6 L ABG O2 Saturation 93.0 L ABG O2 Content 15.1 L ABG Base Excess -4.2 A-a Gradient 98.2 Oxyhemoglobin 91.7 Total Hemoglobin 11.7 L O2 Delivery Device Nasal cannula O2 Liters/Min 2.0 FiO2 28 Sodium Potassium Chloride Carbon Dioxide Anion Gap BUN Creatinine Estim Creat Clear Calc Estimated GFR Glucose POC Capillary Glucose 192 H 192 H Hemoglobin A1c Lactic Acid Calcium Total Bilirubin AST ALT Alkaline Phosphatase Troponin I NT-Pro-B Natriuret Pep Total Protein Albumin Procalcitonin Urine Color Urine Appearance Urine pH Ur Specific [place] Urine Protein Urine Glucose (UA) Urine Ketones Ur Blood (Man) Urine Nitrate Urine Bilirubin Urine Urobilinogen Leukocyte Esterase Rfl Influenza A (RT-PCR) Influenza B (RT-PCR) RSV (RT-PCR) SARS-CoV-2 RNA (RT-PCR) Quality VTE Prophylaxis VTE prophylaxis: mechanical ordered
[2024-04-08 16:31] LABS: Glucose Point of Care 169 mg/dl (65-105)
[2024-04-08] MEDS: cloNIDine HCL 0.1 MG TABLET 0.3 MG PO (20:30)
[2024-04-08] MEDS: GABAPENTIN 100 MG CAPSULE PO (20:31)
[2024-04-08 20:38] LABS: Glucose Point of Care 167 mg/dl (65-105)
[2024-04-09] VITALS (29 sets, daily range): BP systolic 113–160; BP diastolic 51–95; PULSE 75–100; RESP 17–23; TEMP 36.5–36.7; O2SAT 86–99
[2024-04-09] MEDS: IPRATROPIUM 0.5 MG/ALBUTEROL SULFATE 2.5 MG AMPUL.NEB 3 ML INHALATION ×4 (02:16→20:09)
[2024-04-09 02:52] LABS: Basophils Absolute Auto 0.1 K/mm3 (0.0-0.1); Basophils Percent Auto 0.7 % (0.2-1.2); Eosinophils Absolute Auto 0.2 K/mm3 (0-0.3); Hematocrit 40.1 % (37.0-47.0); Hemoglobin 12.4 g/dL (12.0-15.0); Immature Granulocyte Absolute 0.02 K/mm3 (0.00-0.031); Immature Granulocyte Percent A 0.2 % (0-0.5); Lymphocytes Absolute Auto 1.01 K/mm3 (0.9-3.2); Lymphocytes Percent Auto 11.9 % (18.3-44.2); Mean Corpuscular HGB Conc 30.9 g/dl (32-36); Mean Corpuscular Hemoglobin 29.4 pg (26-34); Mean Platelet Volume 10.2 fl (7.4-10.4); Monocytes Absolute Auto 0.8 K/mm3 (0.1-0.6); Monocytes Percent Auto 9.1 % (2.6-8.5); Neutrophils Absolute Auto 6.5 K/mm3 (1.3-6.7); Neutrophils Percent Auto 76.1 % (45.5-73.1); Platelet Count Result 210 k/mm3 (150-375); Red Blood Count 4.22 M/mm3 (4.2-5.4); Red Cell Distribution Width 14.3 % (11.5-14.5); White Blood Count 8.5 K/mm3 (4.5-10.0)
[2024-04-09 03:08] LABS: Alanine Aminotransferase 82 U/L (6-35); Albumin Level 4.2 g/dL (3.5-5.1); Alkaline Phosphatase 125 U/L (38-126); Anion Gap 13 mmol/L (4-12); Aspartate Amino Transferase 34 U/L (14-36); Bilirubin,Total 0.6 mg/dL (0.2-1.3); Blood Urea Nitrogen 37 mg/dL (7-17); Calcium 9.5 mg/dL (8.4-10.2); Carbon Dioxide 20 mmol/L (22-30); Chloride 102 mmol/L (98-107); Estimated CRCL calculation 33 ml/min; Estimated Glomerular Filt Rate 28; Glucose 199 mg/dL (65-110); Magnesium 2.1 mg/dL (1.6-2.3); Potassium 4.4 mmol/L (3.4-5.0); Sodium 135 mmol/L (137-145)
[2024-04-09 03:10] LABS: Lactic Acid Reflex 0.8 mmol/L (0.7-2.0)
[2024-04-09 08:06] LABS: Glucose Point of Care 147 mg/dl (65-105)
[2024-04-09] MEDS: guaiFENesin 600 MG/DEXTROMETHORPHAN 30 MG SR TAB 12 HR 1 TAB PO ×2 (09:28→21:35)
[2024-04-09] MEDS: ATORVASTATIN 40 MG TABLET PO (09:28)
[2024-04-09] MEDS: EMPAGLIFLOZIN 25 MG TABLET PO (09:28)
[2024-04-09] MEDS: DOXYCYCLINE HYCLATE 100 MG TABLET PO ×2 (09:28→21:36)
[2024-04-09] MEDS: METOPROLOL SUCCINATE EXT REL 100 MG TABCR PO (09:29)
[2024-04-09] MEDS: lisinopriL 20 MG TABLET PO (09:29)
[2024-04-09] MEDS: ENOXAPARIN 30 MG/0.3 ML SYRINGE SUB-Q (09:34)
[2024-04-09] MEDS: INSULIN GLARGINE (*BKC) 100 UNITS/ML 18 UNITS SUB-Q (09:36)
[2024-04-09 11:58] LABS: Glucose Point of Care 157 mg/dl (65-105)
--- NOTE | 2024-04-09 14:28 | PC.NURSE ---
Reviewed and Agree with Charting for Marjorie Barba [facility]
--- NOTE | 2024-04-09 16:46 | PM.IMPN ---
Progress Note: A&P Assessment and Plan (1) Sepsis: Qualifiers: Sepsis type: sepsis due to unspecified organism Sepsis acute organ dysfunction status: with acute organ dysfunction Severe sepsis acute organ dysfunction type: acute respiratory failure Acute respiratory failure type: with hypoxia Severe sepsis shock status: without septic shock Qualified Code(s): A41.9 - Sepsis, unspecified organism; R65.20 - Severe sepsis without septic shock; J96.01 - Acute respiratory failure with hypoxia Code(s): A41.9 - Sepsis, unspecified organism Status: Acute Assessment and Plan: - meets SIRS criteria: HR, RR. +hypoxia - lactic acidosis resolved, 0.8 today - lactic elevated, procalcitonin added gentle IVF and monitor - started on ceftriaxone IVPB and doxycycline p.o. monitor cultures CXR this mornign showed negative Pneumonia, Ct chest ordered CXR on admission showed left lower lung zone opacities F/u Ct chest (2) Acute hypoxic respiratory failure: Code(s): J96.01 - Acute respiratory failure with hypoxia Status: Acute Assessment and Plan: - CXR: Mild opacities projecting over the left lower lung zone which could represent atelectasis or pneumonia. - initially requiring BiPAP, now weaned to 2L NC. Continue to wean as tolerated and maintain sat >92%. - titrate oxygen - Ct chest showed RLL pneumonia and no pulm edema (3) Community acquired pneumonia: Qualifiers: Laterality: left Lung location: lower lobe of lung Qualified Code(s): J18.9 - Pneumonia, unspecified organism Code(s): J18.9 - Pneumonia, unspecified organism Status: Suspected Assessment and Plan: continue above care (4) Acute decompensated heart failure: Code(s): I50.9 - Heart failure, unspecified Status: Suspected Assessment and Plan: stop diuresis CT chest showed RLL pneumonia, no pulm edema (5) CKD (chronic kidney disease), stage IV: Code(s): N18.4 - Chronic kidney disease, stage 4 (severe) Status: Chronic Assessment and Plan: - creatinine 1.6 and GFR 34 - unknown baseline - hx of CKD stage 4 - trend renal function - trend electrolytes, correct as needed (6) Diabetes: Qualifiers: Diabetes mellitus type: type 2 Diabetes mellitus 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 Diabetes mellitus complication status: with kidney complications Diabetes mellitus complication detail: with chronic kidney disease Chronic kidney disease stage: stage 4 (severe) Qualified Code(s): E11.22 - Type 2 diabetes mellitus with diabetic chronic kidney disease; N18.4 - Chronic kidney disease, stage 4 (severe) Code(s): E11.9 - Type 2 diabetes mellitus without complications Status: Chronic Assessment and Plan: - hypoglycemia protocol - POC blood glucose ACHS - home medication: Continue Jardiance - correct regimen ordered - high dose TIDWM, based off BMI - A1C ordered (7) HTN (hypertension): Qualifiers: Hypertension type: primary hypertension Qualified Code(s): I10 - Essential (primary) hypertension Code(s): I10 - Essential (primary) hypertension Status: Chronic Assessment and Plan: - chronic, currently 128/61. Arrived hypertensive at 199/94. - continue home medications: clonidine 0.3 HS, lisinopril 20 daily, metoprolol XL 100 daily - monitor Plan Diet: Diabetic DVT Prophylaxis: on sq Lovenox Lines: Peripheral Code Status: Full code Subjective Date/time seen: 04/09/24 16:46 Interval history: Comfortable at bedside, now on nasal cannula however very dyspneic on mild exertion monitor one more night Review of Systems Review of Systems: All systems reviewed & are unremarkable except as noted in HPI and below Exam Narrative: General: alert and comfortable, on BIPAP Eyes: EOMI, PERRLA ENNT External ears normal, Neck is supple, no masses, Respiratory systems: Clear to auscultation Cardiovascular S1, S2, normal rhythm, no murmur, rub, or gallop; no thrill or palpable murmurs on palpation. Gastrointestinal: soft, non-tender, and non-distended abdomen with no masses; BS present Skin: no rash, lesions, ulcerations, subcutaneous nodules or induration Musculoskeletal: no abnormality and no tenderness, normal ROM Neurologic: Alert and oriented x3, non focal Mental Status Exam: normal affect Const: General: comfortable and no acute distress Other: , female, nontoxic appearance HENMT: Face/Nose/Sinus: Normal nares present Mouth: Yes moist mucous membranes Other: NC in place Eyes: General: appearance normal, both eyes and all related structures Sclera: sclerae normal Pupils: Equal, round and reactive pupils present EOM: EOMs intact bilaterally Resp: Effort & Inspection: normal respiratory effort Auscultation: clear to auscultation bilaterally Other: No wheezing or crackles on exam. Cardio: Rate: regular rate Rhythm: regular rhythm Other: S1-S2 present without murmur, rub, ectopy GI: Other: Abdomen soft, nondistended, nontender Skin: General skin exam: normal color and no rashes or lesions noted Wounds: no wounds Neuro: General: gait normal Cranial nerves: Yes Equal, round and reactive pupils present Speech: normal speech Motor exam (neuro): 5/5 motor strength present throughout Sensory Exam: normal sensation Other: A&O x4 Extrem: Other: Trace nonpitting edema to bilateral ankles, symmetric Psych: Mental Status: mental status grossly normal Affect: normal affect Other: Good insight and judgment, very pleasant Objective Data Vital Signs Vital Signs: Vital Signs - 24 hr 04/08/24 18:00 04/08/24 19:51 04/08/24 20:01 Temperature Pulse Rate 91 89 89 Respiratory Rate 20 20 Blood Pressure Pulse Oximetry Oxygen Delivery Oxygen Flow Rate Fraction of Inspired Oxygen 04/08/24 20:21 04/08/24 22:25 04/08/24 20:00 Temperature 98.6 F Pulse Rate 98 84 90 Respiratory Rate 20 24 H Blood Pressure 148/78 H Pulse Oximetry 90 95 Oxygen Delivery BiPAP Oxygen Flow Rate Fraction of Inspired Oxygen 04/08/24 20:00 04/08/24 22:00 04/08/24 23:33 Temperature 98.3 F Pulse Rate 81 78 Respiratory Rate 20 Blood Pressure 103/61 Pulse Oximetry 94 94 Oxygen Delivery BiPAP Oxygen Flow Rate Fraction of Inspired Oxygen 04/09/24 00:00 04/09/24 00:00 04/09/24 02:16 Temperature Pulse Rate 75 83 Respiratory Rate 23 H Blood Pressure Pulse Oximetry 94 95 Oxygen Delivery BiPAP BiPAP Oxygen Flow Rate Fraction of Inspired Oxygen 30 04/09/24 02:16 04/09/24 02:27 04/09/24 02:00 Temperature Pulse Rate 83 83 85 Respiratory Rate 23 H 21 H Blood Pressure Pulse Oximetry Oxygen Delivery Oxygen Flow Rate Fraction of Inspired Oxygen 04/09/24 04:00 04/09/24 04:00 04/09/24 05:10 Temperature 97.8 F Pulse Rate 84 84 Respiratory Rate 20 Blood Pressure 120/51 L Pulse Oximetry 92 95 Oxygen Delivery Nasal Cannula Oxygen Flow Rate 2 Fraction of Inspired Oxygen 04/09/24 06:00 04/09/24 07:15 04/09/24 07:15 Temperature Pulse Rate 84 85 Respiratory Rate 20 Blood Pressure Pulse Oximetry 95 Oxygen Delivery Nasal Cannula Oxygen Flow Rate 2 Fraction of Inspired Oxygen 04/09/24 07:38 04/09/24 07:44 04/09/24 07:45 Temperature 98 F Pulse Rate 87 100 Respiratory Rate 20 18 Blood Pressure 113/63 Pulse Oximetry 92 86 L Oxygen Delivery Room Air Oxygen Flow Rate Fraction of Inspired Oxygen 04/09/24 07:48 04/09/24 07:49 04/09/24 09:29 Temperature Pulse Rate 100 Respiratory Rate Blood Pressure Pulse Oximetry 89 L 94 Oxygen Delivery Nasal Cannula Nasal Cannula Oxygen Flow Rate 1 2 Fraction of Inspired Oxygen 04/09/24 11:47 04/09/24 13:07 04/09/24 13:14 Temperature 97.7 F Pulse Rate 100 83 84 Respiratory Rate 18 20 20 Blood Pressure 136/73 Pulse Oximetry 97 Oxygen Delivery Oxygen Flow Rate Fraction of Inspired Oxygen 04/09/24 16:00 Temperature 98.1 F Pulse Rate 84 Respiratory Rate 18 Blood Pressure 128/61 Pulse Oximetry 96 Oxygen Delivery Oxygen Flow Rate Fraction of Inspired Oxygen Intake/Output Intake/Output: Intake & Output 04/06/24 04/07/24 04/08/24 04/09/24 23:59 23:59 23:59 23:59 Intake Total 1430 1520 1030 Output Total 2850 2 Balance 1430 -1330 1028 Meds/Results Medications: Active Medications Generic Name Dose Route Start Last Admin Trade Name Freq PRN Reason Stop Dose Admin Acetaminophen 650 mg 04/07/24 15:09 04/07/24 20:26 Acetaminophen 325 Mg Tablet PO 650 mg Q4H PRN Administration Mild Pain (1-3) or Fever Albuterol 1 puff 04/07/24 17:34 04/08/24 04:08 Albuterol Sulfate (*Sp) Aerosol 1 Puff INHALATION 1 puff Q4-6H PRN Administration Shortness Of Breath Or Wheezin Albuterol/Ipratropium 3 ml 04/08/24 04:05 04/09/24 13:07 Ipratropium 0.5 Mg/Albuterol Sulfate 2.5 Mg Ampul.Neb 3 Ml INHALATION 3 ml Q6HRT PAIGE Administration Atorvastatin Calcium 40 mg 04/08/24 09:00 04/09/24 09:28 Atorvastatin 40 Mg Tablet PO 40 mg DAILY PAGIE Administration Clonidine HCl 0.3 mg 04/07/24 21:00 04/08/24 20:30 Clonidine Hcl 0.1 Mg Tablet PO 0.3 mg HS PAIGE Administration Dextrose 12.5 gm 04/07/24 17:36 Dextrose 50% 25 Gm/50 Ml Syringe IV PUSH PRN PRN Hypoglycemia Protocol Doxycycline Hyclate 100 mg 04/07/24 22:00 04/09/24 09:28 Doxycycline Hyclate 100 Mg Tablet PO 100 mg Q12H PAIGE Administration Empagliflozin 25 mg 04/08/24 09:00 04/09/24 09:28 Empagliflozin 25 Mg Tablet PO 25 mg DAILY PAIGE Administration Enoxaparin Sodium 30 mg 04/09/24 09:00 04/09/24 09:34 Enoxaparin 30 Mg/0.3 Ml Syringe SUB-Q 30 mg DAILY PAIGE Administration Gabapentin 100 mg 04/07/24 21:00 04/08/24 20:31 Gabapentin 100 Mg Capsule PO 100 mg HS PAIGE Administration Glucagon 1 mg 04/07/24 17:36 Glucagon For Inj 1 Mg Vial IM PRN PRN Hypoglycemia Protocol Glucose 15 gm 04/07/24 17:36 Glucose Oral Gel 15 Gm Of Glucse In 37.5 Gm Tube PO PRN PRN Hypoglycemia Protocol Guaifenesin/Dextromethorphan 1 tab 04/08/24 10:10 04/09/24 09:28 Guaifenesin 600 Mg/Dextromethorphan 30 Mg Sr Tab 12 Hr PO 1 tab Q12HR PAIGE Administration Ceftriaxone Sodium 1 gm in 50 mls @ 100 mls/hr 04/08/24 14:00 04/09/24 14:54 Rocephin 1 Gm/Ns 50 Ml IVPB 100 mls/hr Q24H PAIGE Administration Dextrose 1,000 mls @ 100 mls/hr 04/07/24 17:36 Dextrose 5% 1,000 Ml IVPB PRN PRN Hypoglycemia Protocol Insulin Aspart 4 - 8 units 04/07/24 17:54 04/09/24 13:02 Insulin Aspart (*Bkc) 100 Units/Ml SUB-Q Not Given TIDWM PAIGE Protocol Insulin Glargine 18 units 04/08/24 09:00 04/09/24 09:36 Insulin Glargine (*Bkc) 100 Units/Ml SUB-Q 18 units DAILY PAIGE Administration Lisinopril 20 mg 04/08/24 09:00 04/09/24 09:29 Lisinopril 20 Mg Tablet PO 20 mg DAILY PAIGE Administration Metoprolol Succinate 100 mg 04/08/24 09:00 04/09/24 09:29 Metoprolol Succinate Ext Rel 100 Mg Tabcr PO 100 mg DAILY PAIGE Administration Miscellaneous Information 1 each 04/09/24 00:01 04/09/24 01:10 Order Clarification XX 05/09/24 00:00 Not Given CLARIFY PAIGE Perflutren Lipid Microsphere 0 ml 04/07/24 15:06 Perflutren Lipid Microspheres 1.5 Ml Vial Diluted To 10 Ml Total Volume IV PUSH 04/10/24 15:06 ONCE PRN adequate visualization Protocol Radiology Results: ITS Impressions Chest X-Ray 04/08/24 09:48 IMPRESSION: 1. No acute cardiopulmonary disease. Chest CT 04/08/24 14:03 IMPRESSION: Mild patchy right lower lobe infrahilar infiltrate Mild discoid atelectasis and/or scarring at the lung bases Trace pericardial fluid Status post cholecystectomy Labs Labs: Laboratory Results - last 24 hr 04/08/24 04/09/24 04/09/24 20:23 02:38 07:47 WBC 8.5 RBC 4.22 Hgb 12.4 Hct 40.1 MCV 95.0 MCH 29.4 MCHC 30.9 L RDW 14.3 Plt Count 210 MPV 10.2 Immature Gran % (Auto) 0.2 Neut % (Auto) 76.1 H Lymph % (Auto) 11.9 L [place] % (Auto) 9.1 H Eos % (Auto) 2.0 Baso % (Auto) 0.7 Lymph # (Auto) 1.01 [place] # (Auto) 0.8 H Eos # (Auto) 0.2 Baso # (Auto) 0.1 Abs Immat Gran (auto) 0.02 Absolute Neuts (auto) 6.5 Absolute Nucleated RBC 0.000 Nucleated RBC % 0.0 Sodium 135 L Potassium 4.4 Chloride 102 Carbon Dioxide 20 L Anion Gap 13 H BUN 37 H Creatinine 1.90 H Estim Creat Clear Calc 33 Estimated GFR 28 L Glucose 199 H POC Capillary Glucose 167 H 147 H Lactic Acid 0.8 Calcium 9.5 Magnesium 2.1 Total Bilirubin 0.6 AST 34 ALT 82 H Alkaline Phosphatase 125 Total Protein 7.0 Albumin 4.2 04/09/24 11:52 WBC RBC Hgb Hct MCV MCH MCHC RDW Plt Count MPV Immature Gran % (Auto) Neut % (Auto) Lymph % (Auto) [place] % (Auto) Eos % (Auto) Baso % (Auto) Lymph # (Auto) [place] # (Auto) Eos # (Auto) Baso # (Auto) Abs Immat Gran (auto) Absolute Neuts (auto) Absolute Nucleated RBC Nucleated RBC % Sodium Potassium Chloride Carbon Dioxide Anion Gap BUN Creatinine Estim Creat Clear Calc Estimated GFR Glucose POC Capillary Glucose 157 H Lactic Acid Calcium Magnesium Total Bilirubin AST ALT Alkaline Phosphatase Total Protein Albumin Quality VTE Prophylaxis VTE prophylaxis: mechanical ordered
[2024-04-09 16:50] LABS: Glucose Point of Care 178 mg/dl (65-105)
[2024-04-09 21:06] LABS: Glucose Point of Care 138 mg/dl (65-105)
[2024-04-09] MEDS: GABAPENTIN 100 MG CAPSULE PO (21:35)
[2024-04-09] MEDS: cloNIDine HCL 0.1 MG TABLET 0.3 MG PO (21:35)
[2024-04-10] VITALS (20 sets, daily range): BP systolic 100–154; BP diastolic 54–87; PULSE 64–99; RESP 16–18; TEMP 36.1–36.6; O2SAT 95–100
[2024-04-10] MEDS: IPRATROPIUM 0.5 MG/ALBUTEROL SULFATE 2.5 MG AMPUL.NEB 3 ML INHALATION ×3 (02:07→13:50)
[2024-04-10 05:13] LABS: Basophils Absolute Auto 0.1 K/mm3 (0.0-0.1); Basophils Percent Auto 0.9 % (0.2-1.2); Eosinophils Absolute Auto 0.2 K/mm3 (0-0.3); Eosinophils Percent Auto 3.6 % (0-4.4); Hematocrit 34.6 % (37.0-47.0); Immature Granulocyte Absolute 0.01 K/mm3 (0.00-0.031); Immature Granulocyte Percent A 0.2 % (0-0.5); Lymphocytes Absolute Auto 1.38 K/mm3 (0.9-3.2); Lymphocytes Percent Auto 26.1 % (18.3-44.2); Mean Corpuscular HGB Conc 31.8 g/dl (32-36); Mean Corpuscular Hemoglobin 29.6 pg (26-34); Mean Corpuscular Volume 93.3 fl (80-100); Mean Platelet Volume 10.2 fl (7.4-10.4); Monocytes Absolute Auto 0.6 K/mm3 (0.1-0.6); Neutrophils Absolute Auto 3.1 K/mm3 (1.3-6.7); Neutrophils Percent Auto 58.2 % (45.5-73.1); Platelet Count Result 175 k/mm3 (150-375); Red Blood Count 3.71 M/mm3 (4.2-5.4); Red Cell Distribution Width 13.9 % (11.5-14.5); White Blood Count 5.3 K/mm3 (4.5-10.0)
[2024-04-10 05:25] LABS: Alanine Aminotransferase 53 U/L (6-35); Albumin Level 3.6 g/dL (3.5-5.1); Alkaline Phosphatase 104 U/L (38-126); Anion Gap 10 mmol/L (4-12); Aspartate Amino Transferase 26 U/L (14-36); Bilirubin,Total 0.4 mg/dL (0.2-1.3); Blood Urea Nitrogen 37 mg/dL (7-17); Carbon Dioxide 21 mmol/L (22-30); Chloride 106 mmol/L (98-107); Estimated CRCL calculation 35 ml/min; Estimated Glomerular Filt Rate 32; Glucose 124 mg/dL (65-110); Magnesium 2.1 mg/dL (1.6-2.3); Potassium 3.9 mmol/L (3.4-5.0); Sodium 137 mmol/L (137-145)
[2024-04-10 07:35] LABS: Glucose Point of Care 106 mg/dl (65-105)
[2024-04-10] MEDS: METOPROLOL SUCCINATE EXT REL 100 MG TABCR PO (08:32)
[2024-04-10] MEDS: EMPAGLIFLOZIN 25 MG TABLET PO (08:32)
[2024-04-10] MEDS: lisinopriL 20 MG TABLET PO (08:32)
[2024-04-10] MEDS: ENOXAPARIN 30 MG/0.3 ML SYRINGE SUB-Q (08:32)
[2024-04-10] MEDS: ACETAMINOPHEN 325 MG TABLET 650 MG PO (08:33)
[2024-04-10] MEDS: INSULIN GLARGINE (*BKC) 100 UNITS/ML 18 UNITS SUB-Q (08:33)
[2024-04-10] MEDS: ATORVASTATIN 40 MG TABLET PO (08:33)
[2024-04-10] MEDS: guaiFENesin 600 MG/DEXTROMETHORPHAN 30 MG SR TAB 12 HR 1 TAB PO (08:33)
--- NOTE | 2024-04-10 10:07 | PCRCNOTE ---
Home O2 eval complete. Patient does not require Home O2 at this time. RN notified.
[2024-04-10] MEDS: DOXYCYCLINE HYCLATE 100 MG TABLET PO (10:10)
[2024-04-10 11:20] LABS: Glucose Point of Care 139 mg/dl (65-105)
--- NOTE | 2024-04-10 12:28 | P.CDI_ITS ---
CDI Query Clarification Request Acute decompensated heart failure has been documented, Please specify type and acuity of heart failure if known. Clinical Indicators: BNP [id number] Treatment: started IVP lasix daily * Acute * Chronic * Acute on Chronic * Unknown * Systolic * Diastolic * Combined Systolic and Diastolic * Unknown
--- NOTE | 2024-04-10 12:28 | WPDCDIQUERY2 ---
CDI Query Clarification Request Acute decompensated heart failure has been documented, Please specify type and acuity of heart failure if known. Clinical Indicators: BNP 41920 Treatment: started IVP lasix daily Acute Chronic Acute on Chronic Unknown Systolic Diastolic Combined Systolic and Diastolic Unknown
--- NOTE | 2024-04-10 14:23 | PM.DS ---
DS: Admitting Diagnosis Discharge Date 04/10/24 Admitting Diagnosis Shortness of breath DS: Discharge Diagnosis Discharge Diagnosis (1) Acute hypoxic respiratory failure: Code(s): J96.01 - Acute respiratory failure with hypoxia Status: Acute (2) Community acquired pneumonia: Qualifiers: Laterality: left Lung location: lower lobe of lung Qualified Code(s): J18.9 - Pneumonia, unspecified organism Code(s): J18.9 - Pneumonia, unspecified organism Status: Suspected DS: Summary Hospital Course Hospital Course: 53 y/o F presents here with shortness of breath with PMH of CHF, CKD stage 4, DM, and HTN. The patient presents here from home for further evaluation of shortness of breath. Patient reports that she initially started having symptoms on (04/06) which consisted of productive cough yielding clear sputum, fever with max T of 101.3? at home, shortness of breath, rhinorrhea, chills and body aches. Patient reports recent history of bronchitis, approximately 1 month ago, which was treated with azithromycin course and steroids. She reports that she completed both courses without full resolution of her symptoms - lingering fatigue. Patient also has history of congestive heart failure, has previously been on Lasix once daily (unknown mg) but has been off of these meds after an admission to a hospital in [place] in May/Apr (moved here in the last 6 months) due to the diuretic causing kidney problems . Patient also off her home medications for 2 months due to lack of insurance, reinstated 1 month ago and was able to contact her providers in [place] for a one month refill. Patient has made an appt with a local PCP (Addison DENNISON) but appt is not until Apr 18. Per ED provider, the patient arrived in severe respiratory distress. Patient unable to speak in full sentences due to shortness of breath, diaphoretic, hypertensive (199/94), and tachycardic (87-116). Patient initially arrived on 2 L nasal cannula, no baseline O2 requirement at home. Later in the ED course the patient was started on BiPAP due to the severity of her respiratory distress. Patient overall improved post BiPAP per ED provider assessment. Patient also reporting increased bilateral lower extremity edema over the last 2-5 days without tenderness or erthema. 5.9 in jul Initial VS at presentation: 97? F, HR 93, RR 20, 1-1 rhythm flu, wound a nodes 97% on 2L NC. ED workup showed: WBC 11.8, hemoglobin 11.6, creatinine 1.6 and GFR 34, AST 70, ALT 128, BNP 43549, and initial troponin 0.056. CXR showed mild opacities projecting over the left lower lung zone which could represent atelectasis versus pneumonia. Patient was managed for Pneumonia with Rocephin and Doxycycline, she was weaned from BiPAP to room air successfully. She noted she has a history of CHF, CKD, DM2 and HTN however she noted she just moved over to [place], and has appointment scheduled with PCP in a week. Patient was dsicharged on Levaquin x 5 days. and renew her home prescripitons. F/u with PCP in 3-5 days Assessment and Plan (1) Sepsis: Qualifiers: Sepsis type: sepsis due to unspecified organism Sepsis acute organ dysfunction status: with acute organ dysfunction Severe sepsis acute organ dysfunction type: acute respiratory failure Acute respiratory failure type: with hypoxia Severe sepsis shock status: without septic shock Qualified Code(s): A41.9 - Sepsis, unspecified organism; R65.20 - Severe sepsis without septic shock; J96.01 - Acute respiratory failure with hypoxia Code(s): A41.9 - Sepsis, unspecified organism Status: Acute Assessment and Plan: sepsis resolved S/p IVF CXR this mornign showed negative Pneumonia CT chest showed RLL infiltrates s/p ceftriaxone IVPB and doxycycline p.o. discharged on Levaquin x 5 more days F/u Ct chest (2) Acute hypoxic respiratory failure: Code(s): J96.01 - Acute respiratory failure with hypoxia Status: Acute Assessment and Plan: - CXR: Mild opacities projecting over the left lower lung zone which could represent atelectasis or pneumonia. - initially requiring BiPAP, now weaned to 2L NC. Continue to wean as tolerated and maintain sat >92%. - titrate oxygen - Ct chest showed RLL pneumonia and no pulm edema resolved, now on room air (3) Community acquired pneumonia: Qualifiers: Laterality: left Lung location: lower lobe of lung Qualified Code(s): J18.9 - Pneumonia, unspecified organism Code(s): J18.9 - Pneumonia, unspecified organism Status: Suspected Assessment and Plan: continue above care (4) Acute decompensated heart failure: Code(s): I50.9 - Heart failure, unspecified Status: Suspected Assessment and Plan: stop diuresis CT chest showed RLL pneumonia, no pulm edema patient noted leg edema prior to admission discharged on lasix 20mg daily (5) CKD (chronic kidney disease), stage IV: Code(s): N18.4 - Chronic kidney disease, stage 4 (severe) Status: Chronic Assessment and Plan: - creatinine 1.6 and GFR 34 - unknown baseline - hx of CKD stage 4 continue outpatient f/u (6) Diabetes: Qualifiers: Diabetes mellitus type: type 2 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 Diabetes mellitus complication status: with kidney complications Diabetes mellitus complication detail: with chronic kidney disease Chronic kidney disease stage: stage 4 (severe) Qualified Code(s): E11.22 - Type 2 diabetes mellitus with diabetic chronic kidney disease; N18.4 - Chronic kidney disease, stage 4 (severe) Code(s): E11.9 - Type 2 diabetes mellitus without complications Status: Chronic Assessment and Plan: resume home regimen (7) HTN (hypertension): Qualifiers: Hypertension type: primary hypertension Qualified Code(s): I10 - Essential (primary) hypertension Code(s): I10 - Essential (primary) hypertension Status: Chronic Assessment and Plan: continue home regimen F/u with PCP in 3-5 days Time Spent with Patient Time attestation: Total time spent providing and/or coordinating discharge services: DS: Data Data Completed and Pending Labs on day of discharge: Labs from last 24 hours 04/10/24 04/10/24 04/10/24 11:11 07:13 04:41 WBC 5.3 RBC 3.71 L Hgb 11.0 L Hct 34.6 L MCV 93.3 MCH 29.6 MCHC 31.8 L RDW 13.9 Plt Count 175 MPV 10.2 Immature Gran % (Auto) 0.2 Neut % (Auto) 58.2 Lymph % (Auto) 26.1 [place] % (Auto) 11.0 H Eos % (Auto) 3.6 Baso % (Auto) 0.9 Lymph # (Auto) 1.38 [place] # (Auto) 0.6 Eos # (Auto) 0.2 Baso # (Auto) 0.1 Abs Immat Gran (auto) 0.01 Absolute Neuts (auto) 3.1 Absolute Nucleated RBC 0.000 Nucleated RBC % 0.0 Sodium 137 Potassium 3.9 Chloride 106 Carbon Dioxide 21 L Anion Gap 10 BUN 37 H Creatinine 1.70 H Estim Creat Clear Calc 35 Estimated GFR 32 L Glucose 124 H POC Capillary Glucose 139 H 106 H Calcium 9.0 Magnesium 2.1 Total Bilirubin 0.4 AST 26 ALT 53 H Alkaline Phosphatase 104 Total Protein 6.0 L Albumin 3.6 04/09/24 04/09/24 20:55 16:43 WBC RBC Hgb Hct MCV MCH MCHC RDW Plt Count MPV Immature Gran % (Auto) Neut % (Auto) Lymph % (Auto) [place] % (Auto) Eos % (Auto) Baso % (Auto) Lymph # (Auto) [place] # (Auto) Eos # (Auto) Baso # (Auto) Abs Immat Gran (auto) Absolute Neuts (auto) Absolute Nucleated RBC Nucleated RBC % Sodium Potassium Chloride Carbon Dioxide Anion Gap BUN Creatinine Estim Creat Clear Calc Estimated GFR Glucose POC Capillary Glucose 138 H 178 H Calcium Magnesium Total Bilirubin AST ALT Alkaline Phosphatase Total Protein Albumin Preliminary micro results at discharge 04/07/24 16:34 Blood Culture - Preliminary Blood 04/07/24 16:34 Blood Culture - Preliminary Blood Discharge Plan Discharge Attending physician on discharge: Angelo Moreno Discharging Clinician: Angelo Moreno Anticipated Discharge Date/Time: 04/10/24 14:19 Patient Disposition: Home, Self-Care Activity: as tolerated Diet: as tolerated Patient Instructions: Antibiotic Form Stand Alone Forms: General Discharge Information Follow-up/Referrals: Patric Kinsey MD [Primary Care Provider] - (F/u with PCP in 3-5 days) Discharge Medications: New levofloxacin 750 mg tablet 750 mg PO DAILY 5 Days Qty: 5 0RF furosemide [Lasix] 20 mg tablet 20 mg PO DAILY 10 Days Qty: 10 0RF Continued atorvastatin 40 mg tablet 40 mg PO DAILY clonidine HCl 0.1 mg tablet 0.3 mg PO HS gabapentin 100 mg capsule 100 mg PO HS albuterol sulfate 90 mcg/actuation HFA aerosol inhaler 90 inh INHALATION Q4-6H PRN (Reason: Shortness Of Breath Or Wheezing) insulin degludec [Tresiba FlexTouch U-100] 100 unit/mL (3 mL) Insulin Pen 18 unit SUBCUT DAILY Jardiance 25 mg Tablet 25 mg PO DAILY 30 Days Qty: 30 1RF lisinopril 20 mg tablet 20 mg PO DAILY 30 Days Qty: 0 0RF metoprolol succinate 100 mg tablet extended release 24 hr 100 mg PO DAILY 30 Days Qty: 0 0RF Date of admission: 04/08/24 15:27 Primary Care Provider: Patric Kinsey Admitting Provider: Angelo Moreno Attending physician on admission: Angelo Moreno Condition: Guarded Prognosis
[2024-04-10] MEDS: INFLUENZA TRIVALENT VACCINE 45 MCG/0.5 ML SYRINGE IM (15:11)
== END 2024-04-10 15:22 | disposition home or self-care (01) | DRG 193 ==
LOC: ANHED 14:30 → ANHIMU 16:35
PROVIDERS: Student in an Organized Health Care Education/Training Program; Admitting Provider Internal Medicine; Emergency Provider Student in an Organized Health Care Education/Training Program; PCP Family Medicine; Visit Provider Internal Medicine
DX: J18.9 Pneumonia, unspecified organism (principal); J96.01 Acute respiratory failure with hypoxia; I13.0 Hypertensive heart and chronic kidney disease with heart failure and stage 1 through stage 4 chronic kidney disease, or unspecified chronic kidney disease; N18.4 Chronic kidney disease, stage 4 (severe); I50.9 Heart failure, unspecified; E11.22 Type 2 diabetes mellitus with diabetic chronic kidney disease; Z87.891 Personal history of nicotine dependence; Z20.822 Contact with and (suspected) exposure to COVID-19; Z79.4 Long term (current) use of insulin; Z23 Encounter for immunization
CPT/HCPCS: 36415; 36600; 71045; 71250; 80053; 81003; 82805; 82810; 82948; 83036; 83605; 83735; 83880; 84145; 84484; 85025; 87040; 87070; 87205; 87637; 90471; 90656; 93005; 93306; 94002; 94003; 94618; 94640; 96365; 96367; 96375; 99291; A9270; G0008; G0378; J0696; J1650; J1815; J1940; J7040; J7120

== ENCOUNTER 2024-08-16 14:47 | Outpatient (CLI) | payer OTHER, SELFPAY ==
[2024-08-16 15:22] LABS: Albumin Level 4.6 g/dL (3.5-5.1); Anion Gap 11 mmol/L (4-12); Blood Urea Nitrogen 37 mg/dL (7-17); Calcium 9.3 mg/dL (8.4-10.2); Carbon Dioxide 23 mmol/L (22-30); Chloride 109 mmol/L (98-107); Estimated Glomerular Filt Rate 33; Glucose 116 mg/dL (65-110); Phosphorus 5.3 mg/dL (2.5-4.5); Potassium 4.9 mmol/L (3.4-5.0); Sodium 143 mmol/L (137-145)
[2024-08-16 15:25] LABS: Creatinine Urine 67.7 mg/dL; Total Protein Urine Random 25 mg/dL; Ur Ttl Prot Creatinine Ratio 0.37 mg/mg (0-0.20)
[2024-08-16 15:33] LABS: Parathyroid Intact 181.2 pg/mL (14.5-75.2)
[2024-08-16 15:52] LABS: Vitamin D 25 Hydroxy 21.8 ng/mL
== END 2024-08-16 14:48 | disposition home or self-care (01) ==
LOC: ANHLAB 14:48
PROVIDERS: PCP Family Medicine; Visit Provider Internal Medicine Nephrology
DX: I12.9 Hypertensive chronic kidney disease with stage 1 through stage 4 chronic kidney disease, or unspecified chronic kidney disease (principal); E11.22 Type 2 diabetes mellitus with diabetic chronic kidney disease; N18.32 Chronic kidney disease, stage 3b; N25.81 Secondary hyperparathyroidism of renal origin; E55.9 Vitamin D deficiency, unspecified
CPT/HCPCS: 36415; 80069; 82306; 82570; 83970; 84156

== ENCOUNTER 2024-08-23 15:29 | Outpatient (CLI) | payer OTHER, SELFPAY ==
--- NOTE | ~2024-08-23 | US_ITS ---
EXAM: RENAL ULTRASOUND HISTORY: I12.9 - Hypertensive chronic kidney disease with stage 1 ... COMPARISON: None FINDINGS: RIGHT KIDNEY: 9.9 x 5.0 x 5.1 cm. The parenchyma of the right kidney is increased in echogenicity. No hydronephrosis or bulky renal calculi. LEFT KIDNEY: 10.9 x 5.5 x 3.9 cm The parenchyma of the left kidney is increased in echogenicity and thin. No hydronephrosis or renal calculi. BLADDER: The bladder is distended, and otherwise unremarkable. Bilateral ureteral jets are visualized. IMPRESSION: No hydronephrosis or renal calculi. Findings suggesting medical renal disease. Reviewed, dictated and finalized at location A. FLOOR PERSON
== END 2024-08-23 15:30 | disposition home or self-care (01) ==
PROVIDERS: PCP Family Medicine; Visit Provider Internal Medicine Nephrology
DX: I12.9 Hypertensive chronic kidney disease with stage 1 through stage 4 chronic kidney disease, or unspecified chronic kidney disease (principal); E11.22 Type 2 diabetes mellitus with diabetic chronic kidney disease; N18.32 Chronic kidney disease, stage 3b
CPT/HCPCS: 76775

== ENCOUNTER 2024-11-28 15:24 | Emergency (ER) | payer OTHER, SELFPAY ==
--- NOTE | ~2024-11-28 | XR_ITS ---
EXAMINATION: XR chest 2V DATE: 11/28/2024 16:43 INDICATION: Hypertension TECHNIQUE: PA and lateral views of the chest were obtained. COMPARISON: Chest radiograph dated 04/08/24 FINDINGS: The lungs are clear with no focal airspace opacities, pulmonary edema, pleural effusion or pneumothor ax. The cardiomediastinal silhouette is normal. Mild thoracic spondylosis. Cholecystectomy clips in t he right upper quadrant. IMPRESSION: 1. No acute cardiopulmonary disease. Reviewed, dictated and finalized at location A.
[2024-11-28 15:31] VITALS: BP 224/101; PULSE 79; RESP 20; TEMP 37; O2SAT 100
--- NOTE | 2024-11-28 15:38 | ECG_ITS ---
Test Date: 2024-11-28 16:18:37 Measurements Intervals [place] Rate: 78 P: 7 HI: 178 QRS: 55 QRSD: 96 T: 77 QT: 373 QTc: 427 Interpretive Statements SINUS RHYTHM POSSIBLE ANTERIOR MYOCARDIAL INFARCTION , OF INDETERMINATE AGE [30 ms Q WAVE IN V3/V4, OR R < 0.2 mV IN V4] Compared to ECG 04/07/2024 11:56:31 No significant changes Electronically Signed On 11-29-2024 11:48:29 CDT by Edwin Lloyd M.D.
--- NOTE | 2024-11-28 15:39 | ED_ITS ---
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 Patient had an 8 month checkup today and was found to have a blood pressure of 240s/120s office and advised to come to the ER. Pt contacted her chief operator reformer and was advised to come to the ED. The patient states she has had a couple blood pressure medication changes by her chief operator reformer in August and September. She stop taking her blood pressure in September because she thought it was well controlled. States when she was previously checked her blood pressure is normally around 150s over 100s. She denies chest pain, headache, vision changes, focal numbness or weakness, lower extremity edema. She has had some shortness of breath when she ambulates up the stairs but attributes this to weight gain. States she has a [employer] concert to go to [employer] and does not wish to be in the ER. GENERAL: Tearful, NAD HEAD: Normocephalic, atraumatic. CHEST: Clear to auscultation. ?No respiratory distress. HEART: Regular rate and rhythm.? NEURO: ?Alert and oriented x3. Patient screened in triage and initial orders placed.? ?Additional care and disposition to be based upon?diagnostic testing and treatment. <Ayla Zaragoza PA-C - Last Filed: 11/28/24 15:46> History of Present Illness HPI narrative: Patient 54-year-old female who presents emergency department chief hypertension. Patient reports he has long running history of hypertension had her medicines adjusted and reports he has been feeling well went to see her manufacturing project manager today and her blood pressure was elevated. The patient reports she was not having any symptoms with this reports she feels fine otherwise and reports that she is anxious because she would like to go to a concert [employer] < Quoc Ram MD - Last Filed: 11/28/24 17:52> Related Data Home Medications: Home Medications ?Medication ?Instructions ?Recorded ?Confirmed ?Last Taken ?Type albuterol sulfate 90 mcg/actuation 90 inh inhalation Q4-6H PRN 04/07/24 08/29/24 Unknown History aerosol inhaler Shortness Of Breath Or Wheezing carvedilol 12.5 mg tablet 12.5 mg PO Q12H 11/28/24 11/28/24 Unknown History lisinopril 40 mg tablet 40 mg PO DAILY 11/28/24 11/28/24 Unknown History spironolactone 25 mg tablet 25 mg PO DAILY 11/28/24 11/28/24 Unknown History <Ayla Zaragoza PA-C - Last Filed: 11/28/24 15:46> Allergies/Adverse Reactions: Allergies Allergy/AdvReac Type Severity Reaction Status Date / Time aspirin Allergy Hives Verified 11/28/24 15:25 <Ayla Zaragoza PA-C - Last Filed: 11/28/24 15:46> Review of Systems 2 Review of Systems: A 10 system review of systems was completed on the patient and is negative except for what is stated in the HPI. Nursing and ancillary documentation was reviewed. <Quoc Ram MD - Last Filed: 11/28/24 17:52> [facility] Past Medical History Medical History: Medical History CKD (chronic kidney disease), stage IV Diabetes HTN (hypertension) CHF (congestive heart failure) <Ayla Zaragoza PA-C - Last Filed: 11/28/24 15:46> Family History Family History: Family History Father Leukemia Hypertension Chronic lymphocytic leukemia Mother Hypertension Diabetes mellitus Sibling Hypertension Grandparent Breast cancer <Ayla Zaragoza PA-C - Last Filed: 11/28/24 15:46> Social History Social History: Social History Smoking status: Former smoker Tobacco type: cigarettes Additional smoking assessment comments: quit 2022, smoked 1 pack per week x 5 years Alcohol intake: never Substance use: current Substance use type: marijuana Other substance usage details: gummies Do You Feel Safe in your Home?: Yes Lack of Transportation: No Lack of Food: Never True Current Housing: I Have Housing Concerned About Future Housing: No Difficulty Paying Gas/Electric Bills: No Difficulty Paying for Meds: No Currently Unemployed: No Education: Associate Degree Difficulty w/ Childcare or Family Care: No Spiritual care concerns: No <Ayla Zaragoza PA-C - Last Filed: 11/28/24 15:46> Exam 2 Narrative: GENERAL: Well-appearing, well-nourished, and in no acute distress. HEAD: Normocephalic, atraumatic. EYES: PERRLA and EOMI. ENT: Nares clear, no rhinorrhea or epistaxis. Mucous membranes moist. NECK: Supple. CHEST: Clear to auscultation. No respiratory distress. HEART: Regular rate and rhythm. No murmur heard. Normal peripheral pulses. ABDOMEN: Soft, nontender, nondistended, normal active bowel sounds. EXTREMITIES: Normal range of motion. No edema. SKIN: Warm, dry, no rash. NEURO: No focal deficits. Alert and oriented x3. PSYCH: Normal mood and affect. <Quoc Ram MD - Last Filed: 11/28/24 17:52> Course Course Emergency Course: Differential diagnosis includes hypertension, Patient received laboratory testing in the emergency department and showed no significant abnormality patient was observed blood pressures come down to 185/93. <Quoc Ram MD - Last Filed: 11/28/24 17:52> Vital Signs Vital signs: Vital Signs Temperature 37.0 C 11/28/24 15:31 Pulse Rate 79 11/28/24 15:31 Respiratory Rate 20 11/28/24 15:31 Blood Pressure 224/101 H 11/28/24 15:31 Pulse Oximetry 100 11/28/24 15:31 Oxygen Delivery Room Air 11/28/24 15:31 Temperature 36.5 C 11/28/24 16:24 Pulse Rate 78 11/28/24 16:24 Respiratory Rate 16 11/28/24 16:24 Blood Pressure 185/93 H 11/28/24 16:24 Pulse Oximetry 100 11/28/24 16:24 Oxygen Delivery Room Air 11/28/24 15:31 <Ayla Zaragoza PA-C - Last Filed: 11/28/24 15:46> Vital Signs Temperature 37.0 C 11/28/24 15:31 Pulse Rate 79 11/28/24 15:31 Respiratory Rate 20 11/28/24 15:31 Blood Pressure 224/101 H 11/28/24 15:31 Pulse Oximetry 100 11/28/24 15:31 Oxygen Delivery Room Air 11/28/24 15:31 Temperature 36.5 C 11/28/24 16:24 Pulse Rate 78 11/28/24 16:24 Respiratory Rate 16 11/28/24 16:24 Blood Pressure 185/93 H 11/28/24 16:24 Pulse Oximetry 100 11/28/24 16:24 Oxygen Delivery Room Air 11/28/24 15:31 <Quoc Ram MD - Last Filed: 11/28/24 17:52> MDM - Recheck/Abnormal Lab/Rx Lab Data Result diagrams: 11/28/24 16:22 11/28/24 16:22 <Ayla Zaragoza PA-C - Last Filed: 11/28/24 15:46> Labs: Lab Results 11/28/24 11/28/24 Range/Units 16:22 16:24 WBC 7.5 (4.5-10.0) K/mm3 RBC 4.18 L (4.2-5.4) M/mm3 Hgb 12.3 (12.0-15.0) g/dL Hct 39.2 (37.0-47.0) % MCV 93.8 (80-100) fl MCH 29.4 (26-34) pg MCHC 31.4 L (32-36) g/dl RDW 12.6 (11.5-14.5) % Plt Count 230 (150-375) k/mm3 MPV 9.5 (7.4-10.4) fl Immature Gran % (Auto) 0.1 (0-0.5) % Neut % (Auto) 58.0 (45.5-73.1) % Lymph % (Auto) 31.5 (18.3-44.2) % [place] % (Auto) 6.0 (2.6-8.5) % Eos % (Auto) 3.6 (0-4.4) % Baso % (Auto) 0.8 (0.2-1.2) % Lymph # (Auto) 2.35 (0.9-3.2) K/mm3 [place] # (Auto) 0.5 (0.1-0.6) K/mm3 Eos # (Auto) 0.3 (0-0.3) K/mm3 Baso # (Auto) 0.1 (0.0-0.1) K/mm3 Abs Immat Gran (auto) 0.01 (0.00-0.031) K/mm3 Absolute Neuts (auto) 4.3 (1.3-6.7) K/mm3 Absolute Nucleated RBC 0.000 (0.0-0.012) K/mm3 Nucleated RBC % 0.0 (0.0-0.2) % Sodium 143 (137-145) mmol/L Potassium 4.4 (3.4-5.0) mmol/L Chloride 111 H (98-107) mmol/L Carbon Dioxide 19 L (22-30) mmol/L Anion Gap 13 H (4-12) mmol/L BUN 30 H (7-17) mg/dL Creatinine 1.66 H (0.7-1.0) mg/dL Estim Creat Clear Calc 36 ml/min Estimated GFR 32 L (59 - ) Glucose 84 (65-110) mg/dL Calcium 9.3 (8.4-10.2) mg/dL Total Bilirubin 0.4 (0.2-1.3) mg/dL AST 31 (14-36) U/L ALT 27 (6-35) U/L Alkaline Phosphatase 67 (38-126) U/L Total Protein 8.0 (6.3-8.2) g/dL Albumin 5.0 (3.5-5.1) g/dL Urine Color Yellow (Yellow) Urine Appearance Clear (Clear) Urine pH 5.5 (5.0-9.0) Ur Specific Gregory 1.018 (1.001-1.035) Urine Protein Negative (Negative) mg/dL Urine Glucose (UA) 3+ H (Negative) mg/dL Urine Ketones Negative (Negative) mg/dL Ur Blood (Man) Negative (Negative) Urine Nitrate Negative (Negative) Urine Bilirubin Negative (Negative) Urine Urobilinogen 0.2 (<2.0) mg/dL Leukocyte Esterase Rfl Negative (Negative) MADIE/UL <Ayla Zaragoza PA-C - Last Filed: 11/28/24 15:46> Lab Results 11/28/24 11/28/24 Range/Units 16:22 16:24 WBC 7.5 (4.5-10.0) K/mm3 RBC 4.18 L (4.2-5.4) M/mm3 Hgb 12.3 (12.0-15.0) g/dL Hct 39.2 (37.0-47.0) % MCV 93.8 (80-100) fl MCH 29.4 (26-34) pg MCHC 31.4 L (32-36) g/dl RDW 12.6 (11.5-14.5) % Plt Count 230 (150-375) k/mm3 MPV 9.5 (7.4-10.4) fl Immature Gran % (Auto) 0.1 (0-0.5) % Neut % (Auto) 58.0 (45.5-73.1) % Lymph % (Auto) 31.5 (18.3-44.2) % [place] % (Auto) 6.0 (2.6-8.5) % Eos % (Auto) 3.6 (0-4.4) % Baso % (Auto) 0.8 (0.2-1.2) % Lymph # (Auto) 2.35 (0.9-3.2) K/mm3 [place] # (Auto) 0.5 (0.1-0.6) K/mm3 Eos # (Auto) 0.3 (0-0.3) K/mm3 Baso # (Auto) 0.1 (0.0-0.1) K/mm3 Abs Immat Gran (auto) 0.01 (0.00-0.031) K/mm3 Absolute Neuts (auto) 4.3 (1.3-6.7) K/mm3 Absolute Nucleated RBC 0.000 (0.0-0.012) K/mm3 Nucleated RBC % 0.0 (0.0-0.2) % Sodium 143 (137-145) mmol/L Potassium 4.4 (3.4-5.0) mmol/L Chloride 111 H (98-107) mmol/L Carbon Dioxide 19 L (22-30) mmol/L Anion Gap 13 H (4-12) mmol/L BUN 30 H (7-17) mg/dL Creatinine 1.66 H (0.7-1.0) mg/dL Estim Creat Clear Calc 36 ml/min Estimated GFR 32 L (59 - ) Glucose 84 (65-110) mg/dL Calcium 9.3 (8.4-10.2) mg/dL Total Bilirubin 0.4 (0.2-1.3) mg/dL AST 31 (14-36) U/L ALT 27 (6-35) U/L Alkaline Phosphatase 67 (38-126) U/L Total Protein 8.0 (6.3-8.2) g/dL Albumin 5.0 (3.5-5.1) g/dL Urine Color Yellow (Yellow) Urine Appearance Clear (Clear) Urine pH 5.5 (5.0-9.0) Ur Specific Gregory 1.018 (1.001-1.035) Urine Protein Negative (Negative) mg/dL Urine Glucose (UA) 3+ H (Negative) mg/dL Urine Ketones Negative (Negative) mg/dL Ur Blood (Man) Negative (Negative) Urine Nitrate Negative (Negative) Urine Bilirubin Negative (Negative) Urine Urobilinogen 0.2 (<2.0) mg/dL Leukocyte Esterase Rfl Negative (Negative) MADIE/UL <Quoc Ram MD - Last Filed: 11/28/24 17:52> Discharge Plan Discharge Clinical Impression: HTN (hypertension) Qualifiers: Hypertension type: primary hypertension Qualified Code(s): I10 - Essential (primary) hypertension <Ayla Zaragoza PA-C - Last Filed: 11/28/24 15:46> Patient Disposition: Home <Ayla Zaragoza PA-C - Last Filed: 11/28/24 15:46> Condition: Stable <Ayla Zaragoza PA-C - Last Filed: 11/28/24 15:46> Instructions: Antibiotic Form, Hypertension (ED) <Ayla Zaragoza PA-C - Last Filed: 11/28/24 15:46> Patient Language: Cymro <Ayla Zaragoza PA-C - Last Filed: 11/28/24 15:46> Prescriptions: No Action lisinopril 40 mg tablet 40 mg PO DAILY spironolactone 25 mg tablet 25 mg PO DAILY carvedilol 12.5 mg tablet 12.5 mg PO Q12H Rx Instructions: must administer with a meal/food Baqsimi 3 mg/actuation spray,non-aerosol 3 mg intranasal ONCE PRN (Reason: hypoglycemia) Qty: 1 1RF Rx Instructions: as a single dose Trulicity 3 mg/0.5 mL pen injector 3 mg subcut WEEKLY Qty: 6 1RF (DME) FreeStyle Adriana 3 Plus Sensor Device See Rx Instructions .Route Qty: 6 3RF Rx Instructions: As directed albuterol sulfate 90 mcg/actuation HFA aerosol inhaler 90 inh INHALATION Q4-6H PRN (Reason: Shortness Of Breath Or Wheezing) atorvastatin [Lipitor] 40 mg tablet 40 mg PO DAILY Qty: 90 0RF insulin lispro [Humalog KwikPen Insulin] 100 unit/mL insulin pen 1 sliding scale dose subcut USEASDIRECTD MDD 80 units Qty: 15 0RF Rx Instructions: Use with scale as planned subcut QAC and QHS; Jardiance 25 mg tablet See Rx Instructions .ROUTE .COMPLEX Qty: 90 3RF Dose Instruction: TAKE 1 TABLET DAILY Rx Instructions: TAKE 1 TABLET DAILY insulin degludec [Tresiba FlexTouch U-100] 100 unit/mL (3 mL) insulin pen See Rx Instructions .ROUTE .COMPLEX Qty: 15 3RF Dose Instruction: INJECT 18 UNITS UNDER THE SKIN DAILY Rx Instructions: INJECT 18 UNITS UNDER THE SKIN DAILY <Ayla Zaragoza PA-C - Last Filed: 11/28/24 15:46> Follow-up/Referrals: Patric Kinsey MD [Primary Care Provider] - <Ayla Zaragoza PA-C - Last Filed: 11/28/24 15:46> Time of Disposition: 17:51 <Ayla Zaragoza PA-C - Last Filed: 11/28/24 15:46> 17:51 <Quoc Ram MD - Last Filed: 11/28/24 17:52>
[2024-11-28 16:24] VITALS: BP 185/93; PULSE 78; RESP 16; TEMP 36.5; O2SAT 100
[2024-11-28 16:31] LABS: Basophils Absolute Auto 0.1 K/mm3 (0.0-0.1); Basophils Percent Auto 0.8 % (0.2-1.2); Eosinophils Absolute Auto 0.3 K/mm3 (0-0.3); Eosinophils Percent Auto 3.6 % (0-4.4); Hematocrit 39.2 % (37.0-47.0); Hemoglobin 12.3 g/dL (12.0-15.0); Immature Granulocyte Absolute 0.01 K/mm3 (0.00-0.031); Immature Granulocyte Percent A 0.1 % (0-0.5); Lymphocytes Absolute Auto 2.35 K/mm3 (0.9-3.2); Lymphocytes Percent Auto 31.5 % (18.3-44.2); Mean Corpuscular HGB Conc 31.4 g/dl (32-36); Mean Corpuscular Hemoglobin 29.4 pg (26-34); Mean Corpuscular Volume 93.8 fl (80-100); Mean Platelet Volume 9.5 fl (7.4-10.4); Monocytes Absolute Auto 0.5 K/mm3 (0.1-0.6); Neutrophils Absolute Auto 4.3 K/mm3 (1.3-6.7); Platelet Count Result 230 k/mm3 (150-375); Red Blood Count 4.18 M/mm3 (4.2-5.4); Red Cell Distribution Width 12.6 % (11.5-14.5); White Blood Count 7.5 K/mm3 (4.5-10.0)
[2024-11-28 16:34] LABS: Add Urine Microscopic? NO; Appearance Urine Clear (Clear); Bilirubin Urine Negative (Negative); Blood Urine Negative (Negative); Color Urine Yellow (Yellow); Glucose Urine UA 3+ mg/dL (Negative); Ketones Urine Negative (Negative); Leukocyte Esterase Ur Negative LEU/UL (Negative); Nitrate Urine Negative (Negative); Protein Urine Negative (Negative); Specific Grav Ur 1.018 (1.001-1.035); Urobilinogen Urine 0.2 mg/dL (<2.0); pH Urine 5.5 (5.0-9.0)
[2024-11-28 16:43] LABS: Alanine Aminotransferase 27 U/L (6-35); Alkaline Phosphatase 67 U/L (38-126); Anion Gap 13 mmol/L (4-12); Aspartate Amino Transferase 31 U/L (14-36); Bilirubin,Total 0.4 mg/dL (0.2-1.3); Blood Urea Nitrogen 30 mg/dL (7-17); Calcium 9.3 mg/dL (8.4-10.2); Carbon Dioxide 19 mmol/L (22-30); Chloride 111 mmol/L (98-107); Estimated CRCL calculation 36 ml/min; Estimated Glomerular Filt Rate 32; Glucose 84 mg/dL (65-110); Potassium 4.4 mmol/L (3.4-5.0); Sodium 143 mmol/L (137-145)
--- NOTE | 2024-11-28 18:33 | PC.NURSE ---
Pts BP upon discharge was 229/104. EDP Dr. Ram aware, states he will order a dose of pts HTN medications.
[2024-11-28 18:43] VITALS: PULSE 73
[2024-11-28] MEDS: carvediloL 12.5 MG TABLET PO (18:43)
[2024-11-28 18:46] VITALS: BP 229/104; PULSE 73; RESP 18; TEMP 36.5; O2SAT 100
== END 2024-11-28 18:46 | disposition home or self-care (01) ==
PROVIDERS: Physician Assistant; Emergency Provider Emergency Medicine; PCP Family Medicine
DX: I13.0 Hypertensive heart and chronic kidney disease with heart failure and stage 1 through stage 4 chronic kidney disease, or unspecified chronic kidney disease (principal); E11.22 Type 2 diabetes mellitus with diabetic chronic kidney disease; N18.4 Chronic kidney disease, stage 4 (severe); I50.9 Heart failure, unspecified
CPT/HCPCS: 36415; 71046; 80053; 81003; 85025; 93005; 99283; A9270

== ENCOUNTER 2024-12-20 15:54 | Outpatient (CLI) | payer OTHER, SELFPAY ==
[2024-12-20 16:54] LABS: Albumin Level 4.9 g/dL (3.5-5.1); Anion Gap 10 mmol/L (4-12); Blood Urea Nitrogen 29 mg/dL (7-17); Calcium 10.1 mg/dL (8.4-10.2); Carbon Dioxide 21 mmol/L (22-30); Chloride 111 mmol/L (98-107); Estimated Glomerular Filt Rate 27; Glucose 93 mg/dL (65-110); Phosphorus 3.7 mg/dL (2.5-4.5); Potassium 4.6 mmol/L (3.4-5.0); Sodium 142 mmol/L (137-145)
[2024-12-20 17:12] LABS: Creatinine Urine 134.6 mg/dL; Total Protein Urine Random 24 mg/dL; Ur Ttl Prot Creatinine Ratio 0.18 mg/mg (0-0.20)
== END 2024-12-20 15:55 | disposition home or self-care (01) ==
LOC: ANHLAB 15:56
PROVIDERS: PCP Family Medicine; Visit Provider Internal Medicine Nephrology
DX: I12.9 Hypertensive chronic kidney disease with stage 1 through stage 4 chronic kidney disease, or unspecified chronic kidney disease (principal); E11.22 Type 2 diabetes mellitus with diabetic chronic kidney disease; N18.32 Chronic kidney disease, stage 3b
CPT/HCPCS: 36415; 80069; 82570; 84156

== ENCOUNTER 2025-04-09 10:01 | Outpatient (CLI) | payer BC, SELFPAY ==
[2025-04-09 10:48] LABS: Total Protein Urine Random 21 mg/dL; Ur Ttl Prot Creatinine Ratio 0.15 mg/mg (0-0.20)
[2025-04-09 10:58] LABS: Albumin Level 4.4 g/dL (3.5-5.1); Anion Gap 10 mmol/L (4-12); Blood Urea Nitrogen 39 mg/dL (7-17); Calcium 9.1 mg/dL (8.4-10.2); Carbon Dioxide 18 mmol/L (22-30); Chloride 111 mmol/L (98-107); Estimated Glomerular Filt Rate 33; Glucose 86 mg/dL (65-110); Potassium 4.6 mmol/L (3.4-5.0); Sodium 139 mmol/L (137-145)
[2025-04-09 10:59] LABS: Cholesterol 152 mg/dL (0-200); HDL Direct 79 mg/dL; Triglycerides 74 mg/dL (<150)
[2025-04-09 11:11] LABS: Parathyroid Intact 184.0 pg/mL (14.5-75.2)
[2025-04-09 11:38] LABS: Thyroid Stimulating Hormone 2.390 uIU/mL (0.465-4.680)
[2025-04-09 11:57] LABS: Vitamin B12 669.0 pg/mL (239-931)
== END 2025-04-09 10:02 | disposition home or self-care (01) ==
PROVIDERS: PCP Family Medicine; Referring Provider Internal Medicine Endocrinology, Diabetes & Metabolism; Visit Provider Internal Medicine Nephrology
DX: E11.22 Type 2 diabetes mellitus with diabetic chronic kidney disease (principal); I12.9 Hypertensive chronic kidney disease with stage 1 through stage 4 chronic kidney disease, or unspecified chronic kidney disease; Z79.4 Long term (current) use of insulin; N18.4 Chronic kidney disease, stage 4 (severe); N25.81 Secondary hyperparathyroidism of renal origin; E55.9 Vitamin D deficiency, unspecified; E78.2 Mixed hyperlipidemia
CPT/HCPCS: 36415; 80061; 80069; 82306; 82570; 82607; 83970; 84156; 84443; 84681

== ENCOUNTER 2025-04-24 08:10 | Outpatient (RCR) | payer BC, MEDICAID, SELFPAY | END 2025-07-16 12:42 | disposition home or self-care (01) | LOC: ANHDMC 08:10 | PROVIDERS: PCP Family Medicine; Visit Provider Internal Medicine Endocrinology, Diabetes & Metabolism | DX: E11.22 Type 2 diabetes mellitus with diabetic chronic kidney disease (principal); N18.32 Chronic kidney disease, stage 3b; Z79.4 Long term (current) use of insulin; Z71.89 Other specified counseling | CPT/HCPCS: G0108 ==